=== PATIENT | female | born 1965 | race Caucasian/White ===

== ENCOUNTER → 2020-05-19 18:26 | Outpatient (BNVA) | payer BC, SELFPAY | PROVIDERS: Family Provider Family Medicine; Visit Provider Nurse Practitioner | DX: Z20.828 Contact with and (suspected) exposure to other viral communicable diseases (principal) | CPT/HCPCS: 87635 ==

== ENCOUNTER 2020-05-21 18:45 | Emergency (ER) | payer BC, SELFPAY ==
--- NOTE | 2020-05-21 18:47 | XRR_ITS ---
PROCEDURE INFORMATION: Exam: XR Chest, 1 View Exam date and time: 05/21/2020 7:46 PM Age: 54 years old Clinical indication: Type not specified; Patient HX: Covid positive, SOB, cough, chest pain; Additional info: Cp TECHNIQUE: Imaging protocol: XR of the chest Views: 1 view. COMPARISON: CR Chest 1 [place] [id number] 01/08/2015 8:38 PM FINDINGS: Lungs: Mild interstitial prominence, without acute infiltrate. Pleural space: No pleural effusion. Heart/Mediastinum: No cardiomegaly. Bones/joints: Degenerative change. When correlating with the previous study, no significant interval changes are present. XR/XR chest 1V portable [id number] IMPRESSION: No acute airspace or pleural disease.
[2020-05-21 19:13] VITALS: BP 207/99; PULSE 85; RESP 14; TEMP 37.6; O2SAT 95; BMI 29.9
--- NOTE | 2020-05-21 19:27 | W.ED.SOB ---
HPI - SOB/Dyspnea General: Chief Complaint: Shortness of Breath/Dyspnea Stated Complaint: covid + Time Seen by Provider: 05/21/20 18:59 Source: patient Mode of arrival: ambulatory Limitations: no limitations History of Present Illness: HPI Narrative: 54-year-old female states she had a cough along with dyspnea and fever over the last 3 days. Patient had COVID testing came back positive today. She states she is concerned with COVID. She has no history of any respiratory issues. Patient's pulse ox here is 96% she is in no distress. She has had some chest pain she states sharp after coughing. Denies any worsening or improving factors. She had no vomiting or diarrhea. Associated symptoms: Reports fever(s); Deny abdominal pain, chest pain, nausea or vomiting Review of Systems Const: Reports: fever(s) Eyes: Denies: blurry vision or eye discomfort ENMT: Denies: throat pain or dental pain Card: Denies: chest pain Resp: Reports: dyspnea and non-productive cough GI: Denies: abdominal pain, nausea, vomiting or diarrhea : Denies: dysuria Musc: Denies: neck pain or back pain Skin/Breast: Denies: rash Neuro: Denies: headache(s) Psych: Denies: depression Sourav/Lymph: Denies: easy bruising All/Imm: Denies: urticaria Physical Exam Const: COMMON NORMALS: no acute distress, patient oriented x3 and healthy appearing HENMT: COMMON NORMALS: normocephalic and atraumatic HEAD & SCALP: normocephalic and atraumatic Eye: COMMON NORMALS: Equal, round and reactive pupils present and EOMs intact bilaterally PUPIL: Yes Equal, round and reactive pupils present Neck/C-Spine: COMMON NORMALS: full ROM and supple Chest: COMMONS NORMALS: normal inspection of the chest and normal palpation of entire chest wall Resp: COMMON NORMALS: normal respiratory effort, No retractions, No use of accessory muscles and clear to auscultation bilaterally AUSCULTATION: clear to auscultation bilaterally Cardio: COMMON NORMALS: regular rate, regular rhythm and No murmurs present (Cardio) RATE: regular rate RHYTHM: regular rhythm GI: COMMON NORMALS: Normal to inspection, nondistended, normoactive bowel sounds present, Soft to palpation, non-tender and no masses PALPATION: Yes Soft to palpation Extremity: COMMON NORMALS: normal to inspection and full ROM Neuro: COMMON NORMALS: patient oriented x3, moves all extremities and no focal motor deficits Psych: COMMON NORMALS: mental status grossly normal, Normal thought process present and cooperative THOUGHT PROCESS: Normal thought process present Skin: COMMON NORMALS: no rashes or lesions noted and no wounds GENERAL SKIN EXAM: no rashes or lesions noted Course Vital Signs: Vital signs: Vital Signs Temperature 99.6 F 05/21/20 19:13 Pulse Rate 72 05/21/20 20:57 Respiratory Rate 18 05/21/20 20:57 Blood Pressure 189/71 05/21/20 20:57 Pulse Oximetry 92 05/21/20 20:57 MDM - SOB/Dyspnea MDM Narrative: Medical decision making narrative: Patient presents here with coronavirus. Patient's lab work here is normal and she has no signs of pulmonary embolism or pneumonia. Her oxygen saturation here is currently 96%. Patient given IV Decadron here we will send her home with an albuterol inhaler. She is stable for discharge is to follow-up with her PCP and return to the ER if worsening. She understands and agrees to plan. Lab Data: Labs: Lab Results 05/21/20 05/21/20 05/21/20 Range/Units 19:42 19:42 19:42 WBC 4.1 (4.0-10.0) 10^3/ uL RBC 4.45 (4.1-5.3) 10^6/u L Hgb 12.9 (11.5-15.3) g/dL Hct 38.4 (37.0-47.0) % MCV 86.3 (81-99) fL MCH 29.0 (28.0-34.0) pg MCHC 33.6 (30.0-36.0) g/dL RDW 12.2 (12.1-15.1) % Plt Count 223 (130-400) 10^3/c mm MPV 9.8 (7.4-10.4) fL Neut % (Auto) 53.1 % Lymph % (Auto) 34.1 % [place] % (Auto) 10.1 % Eos % (Auto) 2.0 % Baso % (Auto) 0.5 % Neut # (Auto) 2.15 (1.8-7.7) 10^3/u L Lymph # (Auto) 1.4 (0.8-4.8) 10^3/u L [place] # (Auto) 0.4 (0.2-0.9) 10^3/u L Eos # (Auto) 0.1 (0.0-0.8) 10^3/u L Baso # (Auto) 0.0 (0.0-0.1) 10^3/u L Nucleated RBC % (a uto) 0 % Nucleated RBCs # 0.0 /100WBC Fibrinogen 587 H (174-498) mg/dL Sodium 137 (136-145) mmol/L Potassium 3.9 (3.5-5.1) mmol/L Chloride 101 (98-107) mmol/L Carbon Dioxide 23 (22-29) mmol/L Anion Gap 16.9 (5-19) BUN 17 (6-20) mg/dL Creatinine 1.0 H (0.5-0.9) mg/dL GFR Calculation 57.4 L (90-130) mL/min Glucose 104 (65-115) mg/dL Calculated Osmolal ity 286 (285-295) mOsm/k g Lactic Acid (0.5-2.2) mmol/L Calcium 9.3 (8.5-10.5) mg/dL Total Bilirubin 0.3 (0.15-1.2) mg/dL AST 26 (0-32) U/L ALT 17 (0-33) U/L Alkaline Phosphata se 77 (35-105) IU/L NT-Pro-B Natriuret Pep 231 H (0-125) pg/mL Total Protein 7.1 (6.6-8.7) g/dL Albumin 4.1 (3.5-5.2) g/dL Globulin 3.0 (1.3-4.6) g/dL 05/21/20 Range/Units 19:42 WBC (4.0-10.0) 10^3/ uL RBC (4.1-5.3) 10^6/u L Hgb (11.5-15.3) g/dL Hct (37.0-47.0) % MCV (81-99) fL MCH (28.0-34.0) pg MCHC (30.0-36.0) g/dL RDW (12.1-15.1) % Plt Count (130-400) 10^3/c mm MPV (7.4-10.4) fL Neut % (Auto) % Lymph % (Auto) % [place] % (Auto) % Eos % (Auto) % Baso % (Auto) % Neut # (Auto) (1.8-7.7) 10^3/u L Lymph # (Auto) (0.8-4.8) 10^3/u L [place] # (Auto) (0.2-0.9) 10^3/u L Eos # (Auto) (0.0-0.8) 10^3/u L Baso # (Auto) (0.0-0.1) 10^3/u L Nucleated RBC % (a uto) % Nucleated RBCs # /100WBC Fibrinogen (174-498) mg/dL Sodium (136-145) mmol/L Potassium (3.5-5.1) mmol/L Chloride (98-107) mmol/L Carbon Dioxide (22-29) mmol/L Anion Gap (5-19) BUN (6-20) mg/dL Creatinine (0.5-0.9) mg/dL GFR Calculation (90-130) mL/min Glucose (65-115) mg/dL Calculated Osmolal ity (285-295) mOsm/k g Lactic Acid 1.2 (0.5-2.2) mmol/L Calcium (8.5-10.5) mg/dL Total Bilirubin (0.15-1.2) mg/dL AST (0-32) U/L ALT (0-33) U/L Alkaline Phosphata se (35-105) IU/L NT-Pro-B Natriuret Pep (0-125) pg/mL Total Protein (6.6-8.7) g/dL Albumin (3.5-5.2) g/dL Globulin (1.3-4.6) g/dL Imaging Data^: CXR: My impression: no acute abnormality Discharge Plan Discharge Patient Disposition: Home Clinical Impression: COVID-19 Condition: Stable Prescriptions: No Action carvedilol 25 mg tablet 25 mg PO BID RF: 0 hydrocodone-acetaminophen 10-325 mg tablet See Rx Instructions .ROUTE .COMPLEX RF: 0 hydrochlorothiazide 25 mg tablet 25 mg PO DAILY RF: 0 naproxen 500 mg tablet 500 mg PO BID RF: 0 meclizine 1 tab PO PRN PRN (Reason: Dizziness) RF: 0 Discharge Orders: Discharge Order (Routine); Ordered 05/21/20 Ordered By: Marilynn Carty Referrals: Slava Prince MD [Primary Care Provider] - 4-7 days Discharge Diet: Advance as tolerated Discharge Activity: Resume usual activity Patient Instructions: Upper Respiratory Infection (ED) Coding Level of Care Code ED Manager Copy for Chg Fwd Exam Comprehensive
[2020-05-21 19:50] LABS: Basophils % 0.5 %; Eosinophils # 0.1 10^3/uL (0.0-0.8); Hematocrit 38.4 % (37.0-47.0); Hemoglobin 12.9 g/dL (11.5-15.3); Lymphocytes # 1.4 10^3/uL (0.8-4.8); Lymphocytes % 34.1 %; Mean Corpuscular HGB Conc 33.6 g/dL (30.0-36.0); Mean Corpuscular Volume 86.3 fL (81-99); Mean Platelet Volume 9.8 fL (7.4-10.4); Monocytes # 0.4 10^3/uL (0.2-0.9); Monocytes % 10.1 %; Neutrophils # 2.15 10^3/uL (1.8-7.7); Neutrophils % 53.1 %; Nucleated Red Blood Cells % 0 %; Platelet Count 223 10^3/cmm (130-400); Red Blood Count 4.45 10^6/uL (4.1-5.3); Red Cell Distribution Width 12.2 % (12.1-15.1); White Blood Count 4.1 10^3/uL (4.0-10.0)
[2020-05-21 20:05] LABS: Fibrinogen 587 mg/dL (174-498)
[2020-05-21 20:13] LABS: Lactic Sepsis W/Reflex 1.2 mmol/L (0.5-2.2)
[2020-05-21 20:18] LABS: Alanine Aminotransferase 17 U/L (0-33); Albumin Level 4.1 g/dL (3.5-5.2); Alkaline Phosphatase 77 IU/L (35-105); Anion Gap 16.9 (5-19); Aspartate Amino Transferase 26 U/L (0-32); Blood Urea Nitrogen 17 mg/dL (6-20); Calcium 9.3 mg/dL (8.5-10.5); Carbon Dioxide 23 mmol/L (22-29); Chloride 101 mmol/L (98-107); Glomerular Filtration Rate 57.4 mL/min (90-130); Glucose 104 mg/dL (65-115); NT Pro B Type Natriuretic Pept 231 pg/mL (0-125); Osmolality Calculated 286 mOsm/kg (285-295); Potassium 3.9 mmol/L (3.5-5.1); Sodium 137 mmol/L (136-145); Total Bilirubin 0.3 mg/dL (0.15-1.2); Total Protein 7.1 g/dL (6.6-8.7)
[2020-05-21] MEDS: dexamethasone 10 mg/mL INJ IVP (20:20)
[2020-05-21] MEDS: ketorolac 30 mg/mL INJ 15 MG IVP (20:22)
[2020-05-21 20:29] VITALS: BP 187/89; PULSE 64; RESP 20; O2SAT 96
[2020-05-21 20:57] VITALS: BP 189/71; PULSE 72; RESP 18; O2SAT 92
[2020-05-21 21:17] VITALS: PULSE 78; RESP 16; O2SAT 96
[2020-05-21 21:22] VITALS: BP 188/72; PULSE 80; RESP 20; O2SAT 91
== END 2020-05-21 21:23 | disposition home or self-care (01) ==
PROVIDERS: Emergency Provider Emergency Medicine; PCP Family Medicine
DX: U07.1 COVID-19 (principal)
CPT/HCPCS: 12345; 71045; 80053; 83605; 83880; 85025; 85384; 94640; 96374; 96375; 99283; 99284; J1100; J1885; J3535

== ENCOUNTER 2020-05-27 08:43 | Emergency (ER) | payer BC, SELFPAY ==
[2020-05-27 09:14] VITALS: BP 216/99; PULSE 86; RESP 20; TEMP 37.1; O2SAT 92; BMI 30.9
--- NOTE | 2020-05-27 09:19 | XR_ITS ---
WS: [id number] XR chest 1V portable [id number] REASON FOR EXAM: dyspnea/cough FINDINGS: Comparison examination on 05/21/2020. The heart and mediastinum are within normal limits. Compared to the previous examination there is a small linear density in the lateral aspect of the lef t lower lung. No other interval change is identified. XR/XR chest 1V portable [id number] IMPRESSION: Most likely small area of linear atelectasis in the left lower lung compared to the previous study.
[2020-05-27 09:27] LABS: Basophils % 0.5 %; Eosinophils # 0.1 10^3/uL (0.0-0.8); Eosinophils % 1.6 %; Hematocrit 37.2 % (37.0-47.0); Hemoglobin 12.8 g/dL (11.5-15.3); Lymphocytes # 0.8 10^3/uL (0.8-4.8); Lymphocytes % 10.5 %; Mean Corpuscular HGB Conc 34.4 g/dL (30.0-36.0); Mean Corpuscular Hemoglobin 29.3 pg (28.0-34.0); Mean Corpuscular Volume 85.1 fL (81-99); Mean Platelet Volume 9.9 fL (7.4-10.4); Monocytes # 0.8 10^3/uL (0.2-0.9); Monocytes % 9.7 %; Neutrophils # 6.09 10^3/uL (1.8-7.7); Neutrophils % 77.1 %; Nucleated Red Blood Cells % 0 %; Platelet Count 327 10^3/cmm (130-400); Red Blood Count 4.37 10^6/uL (4.1-5.3); Red Cell Distribution Width 11.9 % (12.1-15.1); White Blood Count 7.9 10^3/uL (4.0-10.0)
[2020-05-27 09:35] LABS: Add Urine Microscopic? YES; Bacteria Urine 1+ /hpf; Bilirubin Urine 1+ (Negative); Blood Urine 3+ (Negative); Glucose Urine UA Norm (Normal); Ketones Urine Negative (Negative); Leukocyte Esterase Urine 2+ (Negative); Nitrate Urine Positive (Negative); Protein Urine 1+ (Negative); RBC Urine 0-4 /hpf (0-2); Specific Gravity, Urine 1.015 (1.005-1.030); Squamous Epithelial Cell Urine 0-4 /hpf (0-5); Urine Appearance Cloudy (CLEAR); Urine Color Yellow (Yellow); Urobilinogen Urine 1 mg/dL (Negative); WBC Urine TOO NUMEROUS TO CNT /hpf (0-5); pH Urine 5 (5-7)
[2020-05-27 09:36] LABS: Add Urine Culture? Yes
[2020-05-27 09:38] LABS: Alanine Aminotransferase 14 U/L (0-33); Albumin Level 3.8 g/dL (3.5-5.2); Alkaline Phosphatase 93 IU/L (35-105); Anion Gap 14.5 (5-19); Aspartate Amino Transferase 20 U/L (0-32); Blood Urea Nitrogen 15 mg/dL (6-20); Calcium 9.2 mg/dL (8.5-10.5); Carbon Dioxide 21 mmol/L (22-29); Chloride 99 mmol/L (98-107); Globulin 3.4 g/dL (1.3-4.6); Glomerular Filtration Rate 64.8 mL/min (90-130); Glucose 126 mg/dL (65-115); Osmolality Calculated 274 mOsm/kg (285-295); Potassium 3.5 mmol/L (3.5-5.1); Sodium 131 mmol/L (136-145); Total Bilirubin 0.4 mg/dL (0.15-1.2); Total Protein 7.2 g/dL (6.6-8.7)
--- NOTE | 2020-05-27 10:05 | W.ED.BACK ---
HPI - Back Pain/Injury General: Chief Complaint: Back Pain/Injury Stated Complaint: +COVID LAST WEEK, KIDNEY PROBLEMS TODAY Time Seen by Provider: 05/27/20 08:48 History of Present Illness: HPI Narrative: 54-year-old female who comes into the emergency room with complaint of left flank pain that she has had over the last 2 days. She said dysuria urgency and frequency she has had problems with bladder infections and pyelonephritis in the past. She also tested positive for COVID 1 week ago she is not noticed any worsening in her breathing. She not had any increased cough shortness of breath or exertional dyspnea. For the most part she relates that her COVID symptoms have been very mild. She denies any fever sweats or chills since the onset of the flank pain. MD elicited complaint: back pain Pertinent past history: prior back pain Onset (ago): day(s) Timing: constant Severity: moderate Similar Symptoms Previously: Yes Quality: sharp Location: left flank Radiation: groin Exacerbating factors: movement Relieving factors: supine Context: other (Cystitis) Associated symptoms: Reports abdominal pain, chills, dysuria, fever(s), myalgias, nausea, urinary frequency, urinary urgency and weakness; Deny arthralgias, change in bowel habits, difficulty walking, fatigue, fecal incontinence, hematuria, numbness, syncope, tingling/numbness/burning or vomiting Treatments prior to arrival: NSAIDS and acetaminophen Work related injury: No Review of Systems Const: Reports: fever(s) and chills; Denies: fatigue ENMT: Denies: throat pain, ear or mastoid pain, nasal discharge or nasal congestion Card: Denies: syncope Resp: Denies: dyspnea, productive cough or non-productive cough GI: Reports: abdominal pain and nausea; Denies: vomiting, fecal incontinence or change in bowel habits : Reports: dysuria and urinary urgency; Denies: hematuria Skin/Breast: Denies: rash or pruritus Neuro: Denies: difficulty walking Physical Exam Const: COMMON NORMALS: no acute distress GENERAL APPEARANCE: cooperative and comfortable ORIENTATION/CONSCIOUSNESS: Yes awake, Yes oriented to person, Yes oriented to place and Yes oriented to time HENMT: COMMON NORMALS: normocephalic, atraumatic and hearing grossly normal bilaterally HEAD & SCALP: normocephalic and atraumatic Eye: COMMON NORMALS: Equal, round and reactive pupils present, EOMs intact bilaterally, conjunctivae normal and no scleral icterus CONJUNCTIVA: Yes conjunctivae normal PUPIL: Yes Equal, round and reactive pupils present Neck/C-Spine: COMMON NORMALS: no JVD Lymph: LYMPHATIC: no lymphadenopathy noted and no lymphedema noted Resp: COMMON NORMALS: normal respiratory effort, No retractions, No use of accessory muscles and clear to auscultation bilaterally AUSCULTATION: clear to auscultation bilaterally Cardio: COMMON NORMALS: no JVD, regular rate, regular rhythm and No murmurs present (Cardio) RATE: regular rate RHYTHM: regular rhythm GI: COMMON NORMALS: Soft to palpation and No hepatosplenomegaly present AUSCULTATION: Yes normoactive bowel sounds PALPATION: Yes Soft to palpation, No Tenderness to palpation present (GI), No Guarding due to palpation present (GI) and Yes No hepatosplenomegaly present : BLADDER/KIDNEY EXAM: Yes CVA tenderness Back/Pelvis: GENERAL BACK: Yes CVA tenderness CVA tenderness: left Extremity: COMMON NORMALS: normal to inspection, capillary refill normal, no clubbing, cyanosis or edema, no calf tenderness and no pedal edema Neuro: SENSORIUM/ORIENTATION: Yes oriented to person, Yes oriented to place and Yes oriented to time Skin: COMMON NORMALS: no rashes or lesions noted GENERAL SKIN EXAM: no rashes or lesions noted Course Vital Signs: Vital signs: Vital Signs Temperature 98.7 F 05/27/20 09:14 Pulse Rate 74 05/27/20 11:22 Respiratory Rate 18 05/27/20 11:22 Blood Pressure 168/84 05/27/20 11:22 Pulse Oximetry 97 05/27/20 11:22 MDM - Back Pain/Injury MDM Narrative: Medical decision making narrative: Patient does have a mild acute pyelonephritis we will go ahead and start on quinolone Cipro twice daily for 7 days cultures pending White count is normal continue to maintain quarantine for COVID positive status. Return if his further problems. Lab Data: Labs: Lab Results 05/27/20 05/27/20 05/27/20 Range/Units 09:05 09:08 09:08 WBC 7.9 (4.0-10.0) 10^3/ uL RBC 4.37 (4.1-5.3) 10^6/u L Hgb 12.8 (11.5-15.3) g/dL Hct 37.2 (37.0-47.0) % MCV 85.1 (81-99) fL MCH 29.3 (28.0-34.0) pg MCHC 34.4 (30.0-36.0) g/dL RDW 11.9 L (12.1-15.1) % Plt Count 327 (130-400) 10^3/c mm MPV 9.9 (7.4-10.4) fL Neut % (Auto) 77.1 % Lymph % (Auto) 10.5 % [place] % (Auto) 9.7 % Eos % (Auto) 1.6 % Baso % (Auto) 0.5 % Neut # (Auto) 6.09 (1.8-7.7) 10^3/u L Lymph # (Auto) 0.8 (0.8-4.8) 10^3/u L [place] # (Auto) 0.8 (0.2-0.9) 10^3/u L Eos # (Auto) 0.1 (0.0-0.8) 10^3/u L Baso # (Auto) 0.0 (0.0-0.1) 10^3/u L Nucleated RBC % (a uto) 0 % Nucleated RBCs # 0.0 /100WBC Sodium 131 L (136-145) mmol/L Potassium 3.5 (3.5-5.1) mmol/L Chloride 99 (98-107) mmol/L Carbon Dioxide 21 L (22-29) mmol/L Anion Gap 14.5 (5-19) BUN 15 (6-20) mg/dL Creatinine 0.9 (0.5-0.9) mg/dL GFR Calculation 64.8 L (90-130) mL/min Glucose 126 H (65-115) mg/dL Calculated Osmolal ity 274 L (285-295) mOsm/k g Calcium 9.2 (8.5-10.5) mg/dL Total Bilirubin 0.4 (0.15-1.2) mg/dL AST 20 (0-32) U/L ALT 14 (0-33) U/L Alkaline Phosphata se 93 (35-105) IU/L Total Protein 7.2 (6.6-8.7) g/dL Albumin 3.8 (3.5-5.2) g/dL Globulin 3.4 (1.3-4.6) g/dL Urine Color Yellow (Yellow) Urine Appearance Cloudy (CLEAR) Urine pH 5 (5-7) Ur Specific Gravit y 1.015 (1.005-1.030) Urine Protein 1+ H (Negative) Urine Glucose (UA) Norm (Normal) Urine Ketones Negative (Negative) Urine Blood 3+ H (Negative) Urine Nitrate Positive H (Negative) Urine Bilirubin 1+ H (Negative) Urine Urobilinogen 1 H (Negative) mg/dL Ur Leukocyte Daphnie ase 2+ H (Negative) Urine RBC 0-4 H (0-2) /hpf Urine WBC Too numerous to c nt H (0-5) /hpf Ur Squamous Epith Cells 0-4 H (0-5) /hpf Amorphous Sediment Not Reportable Urine Bacteria 1+ H (NONE) /hpf Discharge Plan Discharge Patient Disposition: Home Clinical Impression: Pyelonephritis Condition: Stable Prescriptions: New Cipro 500 mg tablet 500 mg PO BID Qty: 14 RF: 0 No Action carvedilol 25 mg tablet 25 mg PO BID RF: 0 hydrocodone-acetaminophen 10-325 mg tablet See Rx Instructions .ROUTE .COMPLEX RF: 0 hydrochlorothiazide 25 mg tablet 25 mg PO DAILY RF: 0 naproxen 500 mg tablet 500 mg PO BID RF: 0 Discharge Orders: Discharge Order (Routine); Ordered 05/27/20 Ordered By: Corby Mullen Referrals: Slava Prince MD [Primary Care Provider] - Discharge Diet: Usual diet Discharge Activity: Increase activity as tolerated Discharge Date/Time: 05/27/20 11:22 Coding Level of Care Code ED Protozoology Teacher for Radhag Sarah
[2020-05-27] MEDS: cefTRIAXone 1,000 MG in sodium chloride 0.9% (plus) 50 ML 100 MG IV (11:06)
[2020-05-27 11:22] VITALS: BP 168/84; PULSE 74; RESP 18; O2SAT 97
--- NOTE | 2020-05-29 13:50 | PC.NURSE ---
[place] [facility] [place] 1 tab PO BID x 10 days per written order by Dr Mullen.
== END 2020-05-27 11:22 | disposition home or self-care (01) ==
PROVIDERS: Emergency Provider Family Medicine; PCP Family Medicine
DX: N12 Tubulo-interstitial nephritis, not specified as acute or chronic (principal)
CPT/HCPCS: 12345; 71045; 80053; 81001; 85025; 87077; 87086; 87186; 96365; 99282; 99283; J0696

== ENCOUNTER 2022-01-26 08:30 | Outpatient (CLI) | payer BC, SELFPAY ==
--- NOTE | 2022-01-26 09:13 | XRR_ITS ---
PROCEDURE INFORMATION: Exam: XR Cervical Spine Exam date and time: 01/26/2022 9:17 AM Age: 56 years old Clinical indication: Patient HX: History--neck pain , PT injured neck while jumping on trampoline 2 weeks ago; Additional info: Spinal stenosis, cervical region, please comment on presence or absence of spinal instability TECHNIQUE: Imaging protocol: XR of the cervical spine. Views: 2 or 3 views. COMPARISON: CR XR chest 1V portable [id number] 05/27/2020 9:27 AM FINDINGS: Bones/joints: The cervical spine maintains a normal lordotic curvature. No spondylolisthesis identified. No significant change in spinal alignment with flexion and extension views. The vertebral bodies maintain normal height. Multilevel loss of intervertebral disc height in the cervical spine most predominant C6-7. Multilevel endplate degenerative changes most predominant at C4-5, C5-6 and C6-7. Multilevel cervical facet arthropathy. Soft tissues: Unremarkable. XR/XR cervical spine fl/ex [id number] IMPRESSION: 1. No vertebral body height loss or traumatic malalignment identified. 2. Multilevel degenerative disc disease.
== END 2022-01-26 08:31 | disposition home or self-care (01) ==
PROVIDERS: PCP Family Medicine; Visit Provider Anesthesiology Pain Medicine
DX: M54.2 Cervicalgia (principal); M48.02 Spinal stenosis, cervical region; M51.36 Other intervertebral disc degeneration, lumbar region
CPT/HCPCS: 72040

== ENCOUNTER 2022-05-23 19:54 | Emergency (ER) | payer BC, SELFPAY ==
[2022-05-23 20:00] VITALS: BP 213/110; PULSE 75; RESP 16; TEMP 36.6; O2SAT 97
--- NOTE | 2022-05-23 20:15 | XRR_ITS ---
PROCEDURE INFORMATION: Exam: XR Right Foot Exam date and time: 05/23/2022 8:35 PM Age: 56 years old Clinical indication: Injury or trauma; Fall; Blunt trauma; Foot; Right; Injury date: 05/12/2022; Injury details: PT tripped and fell on concrete approx 1.5 weeks ago; Additional info: Fall foot pain TECHNIQUE: Imaging protocol: Radiologic exam of the Right foot. Views: 3 or more views. COMPARISON: No relevant prior studies available. FINDINGS: Bones/joints: Normal. Soft tissues: Normal. XR/XR foot RT min 3V* [id number] IMPRESSION: No acute osseous findings.
--- NOTE | 2022-05-23 21:48 | ED_ITS ---
HPI - Extremity Problem General: Chief complaint: Extremity Injury, Lower Stated complaint: Injury Rt Foot Time Seen by Provider: 05/23/22 20:03 Source: patient History of Present Illness: 56-year-old female who fell a week ago injuring her right foot. She states that she tripped over a car battery. She complains of lateral right foot pain. No swelling. There is a bump on the dorsum of her foot, she states has been there for years but it seems to have grown and gotten more tender as well. MD Complaint: extremity pain and joint pain Onset (ago): day(s) Pain Consistency: constant Location: right, lower extremity and other (Foot) Quality: aching Radiation: none Relieving factors: immobilization Exacerbating factors: weight bearing Associated symptoms: Deny arthralgias, chest pain, fever(s), rash or short of breath Review of Systems Const: Denies: fever(s) Card: Denies: chest pain Resp: Denies: dyspnea GI: Denies: vomiting Skin/Breast: Denies: rash PFSH ED PFSH: Medical History Hypertension Physical Exam Const: COMMON NORMALS: no acute distress GENERAL APPEARANCE: cooperative; not ill appearing HENMT: COMMON NORMALS: normocephalic, atraumatic and Normal external nose present HEAD & SCALP: normocephalic and atraumatic NOSE: Normal external nose present Eye: COMMON NORMALS: Equal, round and reactive pupils present and EOMs intact bilaterally PUPIL: Yes Equal, round and reactive pupils present Neck/C-Spine: COMMON NORMALS: full ROM GENERAL: Yes trachea midline Chest: CHEST: Yes Symmetrical chest wall rise Resp: COMMON NORMALS: normal respiratory effort Cardio: COMMON NORMALS: regular rate and regular rhythm RATE: regular rate RHYTHM: regular rhythm Extremity: NARRATIVE EXTREMITY EXAM: Examination right foot reveals tenderness over the lateral midfoot. Midfoot dorsum has a mildly tender bony prominence present. No significant deformity. No significant swelling. There is minimal ankle tenderness over the ATFL with no fibular or ankle joint line tenderness. Neuro: FRANK COMA SCALE: document GCS findings [place] coma scale eye opening: Spontaneous [place] coma scale verbal response: Orientated Frank coma scale motor response: Obey commands Frank coma scale total score: 15 SPEECH: speech normal Course Vital Signs: Vital signs: Vital Signs Temperature 98.0 F 05/23/22 23:02 Pulse Rate 66 05/23/22 23:02 Respiratory Rate 17 05/23/22 23:19 Blood Pressure 176/79 05/23/22 23:53 Pulse Oximetry 100 05/23/22 23:53 Oxygen Delivery Me thod 05/23/22 23:19 MDM - Extremity (Nontraumatic) Medical Decision Making X-ray is read as no fracture. On the oblique view, there may be a faint hairline nondisplaced fracture through the base of fifth metatarsal where she is tender. It appears to be healing.We will treat with stiff soled lace up boots. PCP follow-up. Lab Data Radiology Impressions Foot X-Ray 05/23/22 20:15 IMPRESSION: No acute osseous findings. Discharge Plan Discharge Patient Disposition: Home Clinical Impression: Fracture of base of fifth metatarsal bone Condition: Stable Prescriptions: No Action meloxicam 15 mg tablet 15 mg PO DAILY Qty: 30 12RF aspirin 81 mg tablet,delayed release (DR/EC) 81 mg PO DAILY Qty: 30 0RF amlodipine 5 mg tablet 5 mg PO BID Qty: 60 12RF alprazolam 0.25 mg tablet 0.25 mg PO TID PRN (Reason: anxiety) Qty: 60 1RF hydrochlorothiazide 25 mg tablet 25 mg PO DAILY Qty: 30 11RF carvedilol 25 mg tablet 25 mg PO BID hydrocodone-acetaminophen 10-325 mg tablet See Rx Instructions .ROUTE .COMPLEX Rx Instructions: 1 - 2 tab orally EVERY 4-6 HOURS NEEDED FOR PAIN' Discharge Orders: Discharge ED (Routine); Ordered 05/23/22 Ordered By: Devon Robins Referrals: Slava Prince MD [Primary Care Provider] - 2 weeks Patient Instructions: Foot Fracture in Adults (ED), Opioid Safety, Pain Management Activity Restrictions/Additional Instructions: Wear lace up boots until you are able to bear weight in the fracture boot you are prescribed. Wear the fracture boot until seen by your primary doctor in 10 days to 2 weeks. Repeat x-ray may be needed at that point. Return for any problems. Ice will help with pain. Coding Level of Care Code ED Evaluation Assistant for Chg Fwd Exam Comprehensive
[2022-05-23 22:49] VITALS: BP 217/114
[2022-05-23] MEDS: nitroglycerin 0.4 mg sublingual Tablet SUBLINGUAL (22:49)
[2022-05-23] MEDS: cloNIDine 0.1 mg Tablet PO (22:49)
[2022-05-23 23:02] VITALS: BP 217/114; PULSE 66; RESP 17; TEMP 36.7; O2SAT 99
--- NOTE | 2022-05-23 23:10 | PC.NURSE ---
Blood pressure 217/114 at time of discharge, physician notified, new medication order received, meds given. Report to Elvie and patient updated
[2022-05-23 23:19] VITALS: BP 230/92; RESP 17; O2SAT 100
--- NOTE | 2022-05-23 23:20 | PC.NURSE ---
patient bp reassessed, 230/92, charge and dr hardy notified, patient states that she is in a lot of pain in her right foot, refuses medications for pain control due to limitations set with her pain management program.
--- NOTE | 2022-05-23 23:23 | PC.NURSE ---
patient assisted to the bathroom
[2022-05-23 23:53] VITALS: BP 176/79; O2SAT 100
== END 2022-05-23 23:53 | disposition home or self-care (01) ==
PROVIDERS: Emergency Provider Emergency Medicine; PCP Family Medicine
DX: S92.351A Displaced fracture of fifth metatarsal bone, right foot, initial encounter for closed fracture (principal); I10 Essential (primary) hypertension; W01.0XXA Fall on same level from slipping, tripping and stumbling without subsequent striking against object, initial encounter
CPT/HCPCS: 73630; 99283

== ENCOUNTER 2022-06-01 18:28 | Observation (INO) | payer BC, SELFPAY ==
--- NOTE | 2022-06-01 18:28 | XRR_ITS ---
PROCEDURE INFORMATION: Exam: XR Chest Exam date and time: 06/01/2022 6:44 PM Age: 56 years old Clinical indication: Other: R/O stroke TECHNIQUE: Imaging protocol: Radiologic exam of the chest. Views: 1 view. COMPARISON: CR XR chest 1V portable [id number] 05/27/2020 9:27 AM FINDINGS: Lungs: Unremarkable. No consolidation. Pleural spaces: Unremarkable. No pleural effusion. No pneumothorax. Heart/Mediastinum: Unremarkable. No cardiomegaly. Bones/joints: Unremarkable. XR/XR chest 1V portable [id number] IMPRESSION: No acute findings.
--- NOTE | 2022-06-01 18:29 | CTR_ITS ---
PROCEDURE INFORMATION: Exam: CT Head Without Contrast Exam date and time: 06/01/2022 6:25 PM Age: 56 years old Clinical indication: Stroke-like symptoms; Other: RT sided weakness; Additional info: Symptoms of acute stroke TECHNIQUE: Imaging protocol: Computed tomography of the head without contrast. Radiation optimization: All CT scans at this facility use at least one of these dose optimization techniques: automated exposure control; mA and/or kV adjustment per patient size (includes targeted exams where dose is matched to clinical indication); or iterative reconstruction. Other technique: STROKE PROTOCOL was implemented. COMPARISON: MR paiz's wo/w con* [id number] 11/26/2017 12:58 PM RADIATION DOSE METRICS: Total DLP (mGy-cm): 1055.16 FINDINGS: Brain: There is mild cortical atrophy. Low-density changes in the white matter are consistent with nonspecific small vessel chronic ischemic change. There is no intracranial mass, hemorrhage or edema. There is focal low-density in the right caudate nucleus likely small chronic lacunar infarct. Cerebral ventricles: No ventriculomegaly. Paranasal sinuses: Visualized sinuses are unremarkable. No fluid levels. Mastoid air cells: Visualized mastoid air cells are well aerated. Bones/joints: Unremarkable. No acute fracture. Soft tissues: Unremarkable. CT/CT head wo con* [id number] IMPRESSION: Old lacunar disease. No acute intracranial finding. ASSESSMENT: ASPECTS ([place] Stroke Program Early CT Score) is 10.
[2022-06-01 18:30] VITALS: BP 173/67; PULSE 79; RESP 18; TEMP 36.6; O2SAT 95; BMI 32.2
[2022-06-01 18:48] VITALS: BP 173/67; PULSE 84; RESP 20; O2SAT 93
--- NOTE | 2022-06-01 18:49 | W.ED.NEUROSD ---
Documented by User: Cornelius Eaton DO 06/01/22 23:06 HPI - Neuro Symptoms/Deficit General: Chief Complaint: Neuro Symptoms/Deficit Stated Complaint: STROKE ALERT Time Seen by Provider: 06/01/22 18:28 History of Present Illness: 56-year-old female brought in by EMS. Patient was at clinic where she was to be evaluated because her said she had a 101 fever this morning and a bunch of dark stool. Patient was 1 to be checked for COVID. They report that when she was at the clinic EMS was called for some shortness of breath. When EMS arrived they report that she appeared to have complete right-sided weakness. Upon arrival to the ER patient went straight to CT. Upon arrival back to the ER room. Patient reports that she just does not feel good and not feeling right. Patient denied any focal weakness. Her was when reported that she had a fever this morning and stool and that is why she initially went to the doctor's office. Associated symptoms: Reports malaise; Deny chest pain, nausea or vomiting Review of Systems Const: Reports: fever(s) and malaise Eyes: Denies: change in vision or blurry vision ENMT: Denies: throat pain or ear or mastoid pain Card: Denies: chest pain or palpitations Resp: Denies: productive cough, non-productive cough or wheezing GI: Reports: abdominal pain and diarrhea; Denies: nausea or vomiting : Denies: flank pain or difficulty voiding Musc: Denies: neck pain or back pain Skin/Breast: Denies: rash Neuro: Reports: weakness in extremities and other (Please see HPI) Psych: Denies: anxiety or depression PFSH ED PFSH: Medical History (Updated 06/10/22 @ 10:53 by Kvng Mustafa MD) Anemia COVID-19 GI bleed Hypertension Infection due to ESBL-producing Escherichia coli LVH (left ventricular hypertrophy) Melena Transient cerebral ischemia Surgical History H/O tubal ligation History of back surgery History of History of carpal tunnel surgery Hx of appendectomy Hx of tonsillectomy Family History Other Hypertension Parkinsons disease Social History Smoking and tobacco status: former smoker Alcohol intake: current Alcohol intake frequency: holidays/special occasions only 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 stroke score NIHSS: Level Of Consciousness - 1a: 0 Level Of Consciousness Questions - 1b: Both Correct Level Of Consciousness Commands - 1c: Both Correct Best Gaze - 2: Normal Visual Yang - 3: No Visual Loss Facial Palsy - 4: Normal Motor Arm Right - 5: No Drift Motor Arm Left - 5: No Drift Motor Leg Right - 6: No Drift Motor Leg Left - 6: No Drift Limb Ataxia - 7: Absent Sensory - 8: Normal Best Language - 9: No Aphasia Dysarthia - 10: Normal Extinction And Inattention - 11: 0 Score: Total Score: 0 Physical Exam Const: COMMON NORMALS: no acute distress and patient oriented x3 GENERAL APPEARANCE: ill appearing Eye: COMMON NORMALS: Equal, round and reactive pupils present and EOMs intact bilaterally GENERAL EYE: appearance normal, both eyes and all related structures PUPIL: Yes Equal, round and reactive pupils present Chest: CHEST: Yes Symmetrical chest wall rise Resp: COMMON NORMALS: normal respiratory effort and No use of accessory muscles EFFORT & INSPECTION: Yes able to speak in complete sentences Cardio: COMMON NORMALS: regular rate and regular rhythm RATE: regular rate RHYTHM: regular rhythm GI: INSPECTION: Yes normal to inspection PALPATION: Yes Tenderness to palpation present (GI) Details: other (Mid abdomen) Extremity: COMMON NORMALS: full ROM and capillary refill normal OTHER: Walking boot left lower extremity Neuro: COMMON NORMALS: patient oriented x3, moves all extremities, no focal motor deficits and no sensory deficits noted Psych: APPEARANCE: Yes grossly normal Skin: COMMON NORMALS: no rashes or lesions noted GENERAL SKIN EXAM: no rashes or lesions noted Course Vital Signs: Vital signs: Vital Signs Temperature 98.1 F 06/03/22 13:47 Pulse Rate 95 06/03/22 13:47 Respiratory Rate 18 06/03/22 13:47 Blood Pressure 169/78 06/03/22 13:47 Pulse Oximetry 98 06/03/22 13:47 Oxygen Delivery Me thod 06/03/22 11:28 MDM - Neuro Symptoms/Deficit Medical Decision Making Patient with likely a TIA. We are awaiting CT abdomen results to evaluate her abdominal pain and slight decrease in hemoglobin. Patient signed off to Dr. allen who will assume management and likely admit patient for observation depending on results of the CT abdomen. Lab Data : 06/03/22 04:20 06/03/22 04:20 Radiology Impressions Chest X-Ray 06/01/22 18:28 IMPRESSION: No acute findings. Head CT 06/01/22 18:29 IMPRESSION: Old lacunar disease. No acute intracranial finding. ASSESSMENT: ASPECTS ([place] Stroke Program Early CT Score) is 10. Head MRI 06/01/22 19:54 IMPRESSION: 1. Old lacunar infarcts. 2. No acute intracranial abnormality. ADDENDUM: 06/01/22 [id number] Addendum: This study was done as a MRI brain without and with intravenous contrast and includes postcontrast sequences in the imaging protocol. Abdomen/Pelvis CT 06/01/22 22:04 IMPRESSION: 1. Cholelithiasis 2. No acute findings in the abdomen or pelvis. Head/Neck CTA 06/02/22 00:12 IMPRESSION: 1. Moderate stenosis in the intracranial right internal carotid artery.. 2. Severe stenosis left cavernous internal carotid artery 3. Small distal left vertebral artery. IMPRESSION: 1. Moderate stenosis proximal right internal carotid artery. 2. Moderate stenosis proximal left internal carotid artery 3. Question of occlusion of proximal left vertebral artery REFERENCES: NASCET CRITERIA. The degree of stenosis in the cervical segment of the internal carotid artery is based on NASCET criteria. Normal is no stenosis. Mild is less than 50% stenosis. Moderate is 50-69% stenosis. Severe is 70% to 99% stenosis. Total occlusion is no detectable patent lumen. Laboratory Results WBC 9.3 10^3/uL (4.0-10.0) 06/01/22 18:44 RBC 3.24 10^6/uL (4.1-5.3) L 06/01/22 18:44 Hgb 9.9 g/dL (11.5-15.3) L 06/01/22 18:44 Hct 28.9 % (37.0-47.0) L 06/01/22 18:44 MCV 89.2 fl (81-99) 06/01/22 18:44 MCH 30.6 pg (28.0-34.0) 06/01/22 18:44 MCHC 34.3 g/dL (30.0-36.0) 06/01/22 18:44 RDW 13.1 % (12.1-15.1) 06/01/22 18:44 Plt Count 300 10^3/cmm (130-400) 06/01/22 18:44 MPV 10.3 fL (7.4-10.4) 06/01/22 18:44 Neut % (Auto) 73.9 % 06/01/22 18:44 Lymph % (Auto) 20.5 % 06/01/22 18:44 [place] % (Auto) 4.2 % 06/01/22 18:44 Eos % (Auto) 0.8 % 06/01/22:44 Baso % (Auto) 0.3 % 06/01/22 18:44 Neut # (Auto) 6.84 10^3/uL (1.8-7.7) 06/01/22 18:44 Lymph # (Auto) 1.9 10^3/uL (0.8-4.8) 06/01/22 18:44 [place] # (Auto) 0.4 10^3/uL (0.2-0.9) 06/01/22 18:44 Eos # (Auto) 0.1 10^3/uL (0.0-0.8) 06/01/22 18:44 Baso # (Auto) 0.0 10^3/uL (0.0-0.1) 06/01/22 18:44 Nucleated RBC % (auto) 0 % 06/01/22 18:44 Nucleated RBCs # 0.0 /100WBC 06/01/22 18:44 PT 14.00 SECONDS (12.1-14.9) 06/01/22 18:44 INR 1.05 (0.8-1.2) 06/01/22 18:44 APTT 27.3 SECONDS (23.9-36.7) 06/01/22 18:44 Sodium 138 mmol/L (136-145) 06/01/22 18:44 Potassium 3.8 mmol/L (3.5-5.1) 06/01/22 18:44 Chloride 103 mmol/L (98-107) 06/01/22 18:44 Carbon Dioxide 25 mmol/L (22-29) 06/01/22 18:44 Anion Gap 13.8 (5-19) 06/01/22 18:44 BUN 46 mg/dL (6-20) H 06/01/22 18:44 Creatinine 1.0 mg/dL (0.5-0.9) H 06/01/22 18:44 GFR Calculation 56.9 mL/min (90-130) L 06/01/22 18:44 Glucose 137 mg/dL (65-115) H 06/01/22 18:44 Calculated Osmolality 300 mOsm/kg (285-295) H 06/01/22 18:44 Lactate 1.6 mmol/L (0.5-2.2) 06/01/22 18:44 Calcium 9.2 mg/dL (8.5-10.5) 06/01/22 18:44 Total Bilirubin 0.3 mg/dL (0.15-1.2) 06/01/22 18:44 AST 17 U/L (0-32) 06/01/22 18:44 ALT 16 U/L (0-33) 06/01/22 18:44 Alkaline Phosphatase 61 U/L (35-105) 06/01/22 18:44 Total Protein 6.3 g/dL (6.6-8.7) L 06/01/22 18:44 Albumin 3.8 g/dL (3.5-5.2) 06/01/22 18:44 Globulin 2.5 g/dL (1.3-4.6) 06/01/22 18:44 Lipase 17 U/L (13-60) 06/01/22 18:44 Urine Color Yellow (Yellow) 06/01/22 21:39 Urine Appearance Clear (CLEAR) 06/01/22 21:39 Urine pH 5 (5-7) 06/01/22 21:39 Ur Specific [place] 1.015 (1.005-1.030) 06/01/22 21:39 Urine Protein Neg (Negative) 06/01/22 21:39 Urine Glucose (UA) Norm (Normal) 06/01/22 21:39 Urine Ketones Negative (Negative) 06/01/22 21:39 Urine Blood 2+ (Negative) H 06/01/22 21:39 Urine Nitrate Positive (Negative) H 06/01/22 21:39 Urine Bilirubin Neg (Negative) 06/01/22 21:39 Urine Urobilinogen Norm mg/dL (Negative) 06/01/22 21:39 Ur Leukocyte Esterase 2+ (Negative) H 06/01/22 21:39 Urine RBC 5-10 /hpf (0-2) H 06/01/22 21:39 Urine WBC 40-55 /hpf (0-5) H 06/01/22 21:39 Ur Squamous Epith Cells 0-4 /hpf (0-5) H 06/01/22 21:39 Amorphous Sediment Not Reportable 06/01/22 21:39 Urine Bacteria 3+ /hpf (NONE) H 06/01/22 21:39 Urine Opiates Screen Positive ng/mL (Negative) H 06/01/22 21:39 Ur Barbiturates Screen Negative ng/mL (Negative) 06/01/22 21:39 Ur Phencyclidine Scrn Negative ng/mL (Negative) 06/01/22 21:39 Ur Amphetamines Screen Negative ng/mL (Negative) 06/01/22 21:39 U Benzodiazepines Scrn Positive ng/mL (Negative) H 06/01/22 21:39 Urine Cocaine Screen Negative ng/mL (Negative) 06/01/22 21:39 U Marijuana (THC) Screen Negative ng/mL (Negative) 06/01/22 21:39 SARS-CoV-2 Ag (Rapid) negative (Negative) 06/01/22 19:44 Discharge Plan Discharge Patient Disposition: Placed in Observation Admit Provider: Osmel Brady Clinical Impression: Transient cerebral ischemia Discharge Diet: Cardiac Discharge Activity: Increase activity as tolerated Sign Out Sign Out Data: Patient Sign Out occurred on 06/01/22 at 23:05. Patient's care was discussed, and care was transferred from to Samuel Allen MD. Coding Level of Care Code ED Hydraulic Auto Jack Mechanic for Chg Fwd Exam Comprehensive Documented by User: Samuel Allen MD 06/10/22 19:45 HPI - Neuro Symptoms/Deficit General: Chief Complaint: Neuro Symptoms/Deficit Stated Complaint: STROKE ALERT Time Seen by Provider: 06/01/22 18:28 PFSH ED PFSH: Medical History (Updated 06/10/22 @ 10:53 by Kvng Mustafa MD) Anemia COVID-19 GI bleed Hypertension Infection due to ESBL-producing Escherichia coli LVH (left ventricular hypertrophy) Melena Transient cerebral ischemia Surgical History H/O tubal ligation History of back surgery History of History of carpal tunnel surgery Hx of appendectomy Hx of tonsillectomy Family History Other Hypertension Parkinsons disease Social History Smoking and tobacco status: former smoker Alcohol intake: current Alcohol intake frequency: holidays/special occasions only 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 We are awaiting CT abdomen results to evaluate her abdominal pain and slight decrease in hemoglobin. Patient signed off to Dr. allen who will assume management and likely admit patient for observation depending on results of the CT abdomen. I discussed this case with Dr. Eaton at time of handoff. I reviewed history, imaging, labs. No new neurologic symptoms on reexamination however given observed significant neurologic symptoms patient requires admission for further evaluation. Patient agreeable to plan. Samuel Allen MD Emergency Medicine Lab Data : 06/03/22 04:20 06/03/22 04:20 Radiology Impressions Chest X-Ray 06/01/22 18:28 IMPRESSION: No acute findings. Head CT 06/01/22 18:29 IMPRESSION: Old lacunar disease. No acute intracranial finding. ASSESSMENT: ASPECTS ([place]iana Stroke Program Early CT Score) is 10. Head MRI 06/01/22 19:54 IMPRESSION: 1. Old lacunar infarcts. 2. No acute intracranial abnormality. ADDENDUM: 06/01/22 0512 Addendum: This study was done as a MRI brain without and with intravenous contrast and includes postcontrast sequences in the imaging protocol. Abdomen/Pelvis CT 06/01/22 22:04 IMPRESSION: 1. Cholelithiasis 2. No acute findings in the abdomen or pelvis. Head/Neck CTA 06/02/22 00:12 IMPRESSION: 1. Moderate stenosis in the intracranial right internal carotid artery.. 2. Severe stenosis left cavernous internal carotid artery 3. Small distal left vertebral artery. IMPRESSION: 1. Moderate stenosis proximal right internal carotid artery. 2. Moderate stenosis proximal left internal carotid artery 3. Question of occlusion of proximal left vertebral artery REFERENCES: NASCET CRITERIA. The degree of stenosis in the cervical segment of the internal carotid artery is based on NASCET criteria. Normal is no stenosis. Mild is less than 50% stenosis. Moderate is 50-69% stenosis. Severe is 70% to 99% stenosis. Total occlusion is no detectable patent lumen. Laboratory Results WBC 9.3 10^3/uL (4.0-10.0) 06/01/22 18:44 RBC 3.24 10^6/uL (4.1-5.3) L 06/01/22 18:44 Hgb 9.9 g/dL (11.5-15.3) L 06/01/22 18:44 Hct 28.9 % (37.0-47.0) L 06/01/22 18:44 MCV 89.2 fl (81-99) 06/01/22 18:44 MCH 30.6 pg (28.0-34.0) 06/01/22 18:44 MCHC 34.3 g/dL (30.0-36.0) 06/01/22 18:44 RDW 13.1 % (12.1-15.1) 06/01/22 18:44 Plt Count 300 10^3/cmm (130-400) 06/01/22 18:44 MPV 10.3 fL (7.4-10.4) 06/01/22 18:44 Neut % (Auto) 73.9 % 06/01/22 18:44 Lymph % (Auto) 20.5 % 06/01/22 18:44 [place] % (Auto) 4.2 % 06/01/22 18:44 Eos % (Auto) 0.8 % 06/01/22 18:44 Baso % (Auto) 0.3 % 06/01/22 18:44 Neut # (Auto) 6.84 10^3/uL (1.8-7.7) 06/01/22 18:44 Lymph # (Auto) 1.9 10^3/uL (0.8-4.8) 06/01/22 18:44 [place] # (Auto) 0.4 10^3/uL (0.2-0.9) 06/01/22 18:44 Eos # (Auto) 0.1 10^3/uL (0.0-0.8) 06/01/22 18:44 Baso # (Auto) 0.0 10^3/uL (0.0-0.1) 06/01/22 18:44 Nucleated RBC % (auto) 0 % 06/01/22 18:44 Nucleated RBCs # 0.0 /100WBC 06/01/22 18:44 PT 14.00 SECONDS (12.1-14.9) 06/01/22 18:44 INR 1.05 (0.8-1.2) 06/01/22 18:44 APTT 27.3 SECONDS (23.9-36.7) 06/01/22 18:44 Sodium 138 mmol/L (136-145) 06/01/22 18:44 Potassium 3.8 mmol/L (3.5-5.1) 06/01/22 18:44 Chloride 103 mmol/L (98-107) 06/01/22 18:44 Carbon Dioxide 25 mmol/L (22-29) 06/01/22 18:44 Anion Gap 13.8 (5-19) 06/01/22 18:44 BUN 46 mg/dL (6-20) H 06/01/22 18:44 Creatinine 1.0 mg/dL (0.5-0.9) H 06/01/22 18:44 GFR Calculation 56.9 mL/min (90-130) L 06/01/22 18:44 Glucose 137 mg/dL (65-115) H 06/01/22 18:44 Calculated Osmolality 300 mOsm/kg (285-295) H 06/01/22 18:44 Lactate 1.6 mmol/L (0.5-2.2) 06/01/22 18:44 Calcium 9.2 mg/dL (8.5-10.5) 06/01/22 18:44 Total Bilirubin 0.3 mg/dL (0.15-1.2) 06/01/22 18:44 AST 17 U/L (0-32) 06/01/22 18:44 ALT 16 U/L (0-33) 06/01/22 18:44 Alkaline Phosphatase 61 U/L (35-105) 06/01/22 18:44 Total Protein 6.3 g/dL (6.6-8.7) L 06/01/22 18:44 Albumin 3.8 g/dL (3.5-5.2) 06/01/22 18:44 Globulin 2.5 g/dL (1.3-4.6) 06/01/22 18:44 Lipase 17 U/L (13-60) 06/01/22 18:44 Urine Color Yellow (Yellow) 06/01/22 21:39 Urine Appearance Clear (CLEAR) 06/01/22 21:39 Urine pH 5 (5-7) 06/01/22 21:39 Ur Specific [place] 1.015 (1.005-1.030) 06/01/22 21:39 Urine Protein Neg (Negative) 06/01/22 21:39 Urine Glucose (UA) Norm (Normal) 06/01/22 21:39 Urine Ketones Negative (Negative) 06/01/22 21:39 Urine Blood 2+ (Negative) H 06/01/22 21:39 Urine Nitrate Positive (Negative) H 06/01/22 21:39 Urine Bilirubin Neg (Negative) 06/01/22 21:39 Urine Urobilinogen Norm mg/dL (Negative) 06/01/22 21:39 Ur Leukocyte Esterase 2+ (Negative) H 06/01/22 21:39 Urine RBC 5-10 /hpf (0-2) H 06/01/22 21:39 Urine WBC 40-55 /hpf (0-5) H 06/01/22 21:39 Ur Squamous Epith Cells 0-4 /hpf (0-5) H 06/01/22 21:39 Amorphous Sediment Not Reportable 06/01/22 21:39 Urine Bacteria 3+ /hpf (NONE) H 06/01/22 21:39 Urine Opiates Screen Positive ng/mL (Negative) H 06/01/22 21:39 Ur Barbiturates Screen Negative ng/mL (Negative) 06/01/22 21:39 Ur Phencyclidine Scrn Negative ng/mL (Negative) 06/01/22 21:39 Ur Amphetamines Screen Negative ng/mL (Negative) 06/01/22 21:39 U Benzodiazepines Scrn Positive ng/mL (Negative) H 06/01/22 21:39 Urine Cocaine Screen Negative ng/mL (Negative) 06/01/22 21:39 U Marijuana (THC) Screen Negative ng/mL (Negative) 06/01/22 21:39 SARS-CoV-2 Ag (Rapid) negative (Negative) 06/01/22 19:44 Discharge Plan Discharge Patient Disposition: Placed in Observation Admit Provider: Osmel Brady Clinical Impression: Transient cerebral ischemia Discharge Diet: Cardiac Discharge Activity: Increase activity as tolerated Sign Out Sign Out Data: Patient Sign Out occurred on 06/01/22 at 23:05. Patient's care was discussed, and care was transferred from to Samuel Allen MD. Coding Level of Care Code ED Hydraulic Auto Jack Mechanic for Eyad Fwd Exam Comprehensive
[2022-06-01 18:58] LABS: Basophils % 0.3 %; Eosinophils # 0.1 10^3/uL (0.0-0.8); Eosinophils % 0.8 %; Hematocrit 28.9 % (37.0-47.0); Hemoglobin 9.9 g/dL (11.5-15.3); Lymphocytes # 1.9 10^3/uL (0.8-4.8); Lymphocytes % 20.5 %; Mean Corpuscular HGB Conc 34.3 g/dL (30.0-36.0); Mean Corpuscular Hemoglobin 30.6 pg (28.0-34.0); Mean Corpuscular Volume 89.2 fl (81-99); Mean Platelet Volume 10.3 fL (7.4-10.4); Monocytes # 0.4 10^3/uL (0.2-0.9); Monocytes % 4.2 %; Neutrophils # 6.84 10^3/uL (1.8-7.7); Neutrophils % 73.9 %; Nucleated Red Blood Cells % 0 %; Platelet Count 300 10^3/cmm (130-400); Red Blood Count 3.24 10^6/uL (4.1-5.3); Red Cell Distribution Width 13.1 % (12.1-15.1); White Blood Count 9.3 10^3/uL (4.0-10.0)
[2022-06-01 19:04] LABS: INR 1.05 (0.8-1.2)
[2022-06-01 19:05] LABS: Partial Thromboplastin Time 27.3 SECONDS (23.9-36.7)
[2022-06-01 19:10] LABS: Alanine Aminotransferase 16 U/L (0-33); Albumin Level 3.8 g/dL (3.5-5.2); Alkaline Phosphatase 61 U/L (35-105); Anion Gap 13.8 (5-19); Aspartate Amino Transferase 17 U/L (0-32); Blood Urea Nitrogen 46 mg/dL (6-20); Calcium 9.2 mg/dL (8.5-10.5); Carbon Dioxide 25 mmol/L (22-29); Chloride 103 mmol/L (98-107); Globulin 2.5 g/dL (1.3-4.6); Glomerular Filtration Rate 56.9 mL/min (90-130); Glucose 137 mg/dL (65-115); Lactate (Lactic Acid level) 1.6 mmol/L (0.5-2.2); Lipase 17 U/L (13-60); Osmolality Calculated 300 mOsm/kg (285-295); Potassium 3.8 mmol/L (3.5-5.1); Sodium 138 mmol/L (136-145); Total Bilirubin 0.3 mg/dL (0.15-1.2); Total Protein 6.3 g/dL (6.6-8.7)
--- NOTE | 2022-06-01 19:54 | MRR_ITS ---
PROCEDURE INFORMATION: Exam: MR Head Without Contrast Exam date and time: 06/01/2022 8:55 PM Age: 56 years old Clinical indication: Speech disturbance and weakness, extremity; Right; Slurred speech; Additional info: Slurred speech, right sided weakness TECHNIQUE: Imaging protocol: Magnetic resonance imaging of the head without contrast. COMPARISON: 1. CT head wo con* [id number] 06/01/2022 6:25 PM 2. MR iac's wo/w con* [id number] 11/26/2017 12:58 PM FINDINGS: Brain: There is a small chronic lacunar infarct in the right basal ganglia region is seen on CT scan. There is also small T1 hypointense T2 hyperintense focus in the left centrum semiovale, probably a small chronic lacunar infarct not seen on the previous MRI present on the recent CT scan. There is no intracranial mass or hemorrhage. There is no abnormal enhancement within the brain. There is no restricted diffusion such as would indicate an acute infarct. Mild cerebellar ectopia not significantly changed from 11/26/2017. Cerebral ventricles: Normal. No ventriculomegaly. Bones/joints: Unremarkable. Paranasal sinuses: Normal as visualized. No acute sinusitis. Mastoid air cells: Normal as visualized. No mastoid effusion. Orbital cavities: Unremarkable. Soft tissues: Unremarkable. MR/MR head wo/w con [id number] IMPRESSION: 1. Old lacunar infarcts. 2. No acute intracranial abnormality.
[2022-06-01 20:18] LABS: SARS Covid-2 Antigen negative (Negative)
[2022-06-01] MEDS: gadobenate dimeglumine 20 mL vial IV (21:15)
--- NOTE | 2022-06-01 21:44 | PC.NURSE ---
@ 1938- dr leon notified that pt has changes in NIH score since report at shift change. Pt found to no longer have tack coverer to right hand and unable to form words. Per Dr Leon post exam of pt, MRI.
[2022-06-01 21:47] VITALS: BP 162/71; PULSE 86; RESP 18; O2SAT 90
[2022-06-01] MEDS: sodium chloride 0.9% 1,000 ML 999 ML IV (21:50)
[2022-06-01 22:04] LABS: Amphetamines Screen Urine Negative (Negative); Barbiturates Screen Urine Negative (Negative); Benzodiazepines Screen Urine Positive (Negative); Cocaine Screen Urine Negative (Negative); Opiate Screen Urine Positive (Negative); PCP Screen Urine Negative (Negative); THC Screen Urine Negative (Negative)
--- NOTE | 2022-06-01 22:04 | CTR_ITS ---
PROCEDURE INFORMATION: Exam: CT Abdomen And Pelvis Without Contrast Exam date and time: 06/01/2022 10:45 PM Age: 56 years old Clinical indication: Abdominal pain; Generalized; Patient HX: C/O abd pain with decreased hemoglobin TECHNIQUE: Imaging protocol: Computed tomography of the abdomen and pelvis without contrast. Radiation optimization: All CT scans at this facility use at least one of these dose optimization techniques: automated exposure control; mA and/or kV adjustment per patient size (includes targeted exams where dose is matched to clinical indication); or iterative reconstruction. COMPARISON: MR lumbar spine wo con* [id number] 03/25/2016 9:18 AM RADIATION DOSE METRICS: Total DLP (mGy-cm): 786.69 FINDINGS: Limitations: The absence of intravenous contrast lessens the sensitivity of this study for solid organ abnormalities. Liver: There is no focal abnormality within the liver. Gallbladder and bile ducts: Multiple calcified gallstones are present. Pancreas: The pancreas is normal. Spleen: The spleen is normal. Adrenal glands: The adrenal glands are normal. Kidneys and ureters: There is scarring in portions of the upper pole and lower pole of the left kidney.The right kidney is normal. There is no evidence of hydronephrosis. There is no evidence of renal or ureteral calcifications. Stomach and bowel: There is a diverticulum from the 2nd or 3rd portion of the duodenum. There is no evidence of colitis/diverticulitis. There is no evidence of intestinal obstruction. Appendix: Not identified Intraperitoneal space: There is no evidence of free intraperitoneal fluid. Vasculature: The aorta demonstrates mild atherosclerotic calcification. There is no evidence of an abdominal aortic aneurysm. Lymph nodes: There is no evidence of lymphadenopathy. Urinary bladder: Contrast excretion by the kidneys and within the urinary bladder likely represents gadolinium from recent post-contrast MRI study. Reproductive: Unremarkable as visualized. Bones/joints: The lumbar spine demonstrates moderate degenerative changes at multiple levels. Soft tissues: Unremarkable. CT/CT abdomen pelvis wo con [id number] IMPRESSION: 1. Cholelithiasis 2. No acute findings in the abdomen or pelvis.
[2022-06-01 22:06] LABS: Add Urine Microscopic? YES; Bilirubin Urine Neg (Negative); Blood Urine 2+ (Negative); Glucose Urine UA Norm (Normal); Ketones Urine Negative (Negative); Leukocyte Esterase Urine 2+ (Negative); Nitrate Urine Positive (Negative); Protein Urine Neg (Negative); Specific Gravity, Urine 1.015 (1.005-1.030); Urine Appearance Clear (CLEAR); Urine Color Yellow (Yellow); Urobilinogen Urine Norm (Negative); WBC Urine 40-55 /hpf (0-5); pH Urine 5 (5-7)
[2022-06-01 22:07] LABS: Add Urine Culture? Yes; Bacteria Urine 3+ /hpf; Squamous Epithelial Cell Urine 0-4 /hpf (0-5)
[2022-06-01] MEDS: cefTRIAXone 1,000 MG in sodium chloride 0.9% (plus) 50 ML 100 MG IV (22:38)
[2022-06-01 22:45] VITALS: BP 119/63; PULSE 82; RESP 18
[2022-06-01 23:45] VITALS: BP 126/85; PULSE 85; RESP 21; O2SAT 96
[2022-06-02] VITALS (17 sets, daily range): BP systolic 107–176; BP diastolic 60–98; PULSE 60–89; RESP 16–22; TEMP 36.6–36.8; O2SAT 90–99
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
--- NOTE | 2022-06-02 00:12 | USCV_ITS ---
Bere Plasencia Age: 56 Gender: F : 1965 Exam Date: 06/02/2022 01:26 Ordering Phys: Osmel Brady MD Technologist: CRISTIANA [place] [facility] [place]: Right hemparesis, aphasic, syncopal TIA. No hx cardiac intervention per patient. BP: 126 / 85 HR: 75 Rhythm: Sinus Technical Quality: Adequate MEASUREMENTS (Male / Female) Normal Values 2D ECHO LV Diastolic Diameter PLAX 3.6 cm 4.2 - 5.9 / 3.9 - 5.3 cm LV Systolic Diameter PLAX 2.1 cm IVS Diastolic Thickness 1.3 cm 0.6 - 1.0 / 0.6 - 0.9 cm IVS Systolic Thickness 2.2 cm LVPW Diastolic Thickness 1.5 cm 0.6 - 1.0 / 0.6 - 0.9 cm LVPW Systolic Thickness 1.4 cm LVOT Diameter 1.7 cm LV Ejection Fraction 2D Teich 73.5 % LV Ejection Fraction MOD 2C 55.1 % LV Ejection Fraction 2C AL 55.8 % LA Diameter 3.7 cm LA Width 4.3 cm LA Height 5.0 cm RA Width 2.8 cm RA Height 2.7 cm Aorta at Sinotubular Diameter 2.8 cm IVC Diameter 1.1 cm M-MODE Aortic Annulus Diameter 2.6 cm LA Ao Ratio MM 1.4 MV E Point Septal Separation 0.4 cm DOPPLER AV Peak Velocity 166.0 cm/s LVOT Peak Velocity 108.0 cm/s AV Area Cont Eq vti 2.0 cm squared AV Area Cont Eq pk 1.5 cm squared MV Peak Velocity 108.0 cm/s MV Area PHT 2.1 cm squared Mitral E to A Ratio 0.7 MV E' Velocity 32.5 cm/s Mitral E to MV E' Ratio 11.6 Mitral E to LV E' Lateral Ratio 13.2 Mitral E to LV E' Septal Ratio 10.4 TR Peak Velocity 194.0 cm/s TR Peak Gradient 15.1 mmHg TV Peak E Velocity 49.0 cm/s Right Atrial Pressure 5.0 mmHg Pulmonary Artery Systolic Pressu 20.1 mmHg PV Peak Velocity 114.0 cm/s RV Acceleration Time 0.1 s RV Ejection Time 0.4 s RV AcT/ET 0.2 FINDINGS Left Ventricle Left ventricle is normal in size. LV systolic function is normal with EF 55 to 60%. No regional wall motion abnormalities are seen.Moderate left ventricular hypertrophy seen. Grade 1 diastolic dysfunction Right Ventricle RV is normal in size and function Right Atrium Normal in size Left Atrium Normal in size Mitral Valve Structurally normal mitral valve. Mild mitral regurgitation. Aortic Valve Structurally normal aortic valve. No significant stenosis or regurgitation. Tricuspid Valve Trace tricuspid regurgitation. Insufficient TR jet to calculate RVSP Pulmonic Valve Not well visualized Pericardium Normal Aorta Normal in size IVC Normal CONCLUSIONS LV systolic function is normal with EF of 55 to 60%. Moderate left ventricular hypertrophy is seen. Grade 1 diastolic dysfunction Mild mitral regurgitation Trace tricuspid regurgitation No comparison study are available Sreekanth Yu MD (Electronically Signed) Final Date: 02 June 2022 11:06 S
--- NOTE | 2022-06-02 00:12 | CTR_ITS ---
PROCEDURE INFORMATION: Exam: CTA Head With Contrast, Arteriography Exam date and time: 06/02/2022 12:49 AM Age: 56 years old Clinical indication: Patient HX: Sudden onset of RT sided weakness. ; Additional info: TIA TECHNIQUE: Imaging protocol: Computed tomographic angiography of the head with contrast. Exam focused on the arteries. 3D rendering (Not supervised by radiologist): MIP and/or 3D reconstructed images were created by the technologist. Radiation optimization: All CT scans at this facility use at least one of these dose optimization techniques: automated exposure control; mA and/or kV adjustment per patient size (includes targeted exams where dose is matched to clinical indication); or iterative reconstruction. Contrast material: OMNI 350; Contrast volume: 100 ml; Contrast route: INTRAVENOUS (IV); COMPARISON: MR head wo/w con [id number] 06/01/2022 8:55 PM RADIATION DOSE METRICS: Total DLP (mGy-cm): 973.53 FINDINGS: ANTERIOR CIRCULATION: Right internal carotid artery: There is atherosclerotic plaque and moderate stenosis in the right cavernous carotid artery. There is some mild atherosclerotic narrowing of the right internal carotid artery within the carotid canal. Right middle cerebral artery: No occlusion or significant stenosis. No aneurysm. Right anterior cerebral artery: No occlusion or significant stenosis. No aneurysm. Left internal carotid artery: There is severe stenosis in the left cavernous carotid artery. There is mild stenosis in the left internal carotid artery in the carotid canal. Left middle cerebral artery: No occlusion or significant stenosis. No aneurysm. Left anterior cerebral artery: No occlusion or significant stenosis. No aneurysm. POSTERIOR CIRCULATION: Right vertebral artery: No occlusion or significant stenosis. No aneurysm. Left vertebral artery: The left V3 vertebral artery segment is very small. The left V4 vertebral artery segment appears to be supplied via retrograde flow as it is larger than the V3 segment. Basilar artery: No occlusion or significant stenosis. No aneurysm. Right posterior cerebral artery: There is origin of the right posterior cerebral artery. Left posterior cerebral artery: No occlusion or significant stenosis. No aneurysm. Brain: There is moderate cortical atrophy. Low-density changes in the white matter are consistent with nonspecific small vessel chronic ischemic change. There is no intracranial mass, hemorrhage or edema. Small bilateral lacunar infarcts again identified not changed from the previous exam. Cerebral ventricles: No ventriculomegaly. Bones/joints: Unremarkable. No acute fracture. Soft tissues: Unremarkable. PROCEDURE INFORMATION: Exam: CTA Neck With Contrast Exam date and time: 06/02/2022 12:49 AM Age: 56 years old Clinical indication: Patient HX: Sudden onset of RT sided weakness. ; Additional info: TIA TECHNIQUE: Imaging protocol: Computed tomographic angiography of the neck with contrast. 3D rendering (Not supervised by radiologist): MIP and/or 3D reconstructed images were created by the technologist. Radiation optimization: All CT scans at this facility use at least one of these dose optimization techniques: automated exposure control; mA and/or kV adjustment per patient size (includes targeted exams where dose is matched to clinical indication); or iterative reconstruction. Contrast material: OMNI 350; Contrast volume: 100 ml; Contrast route: INTRAVENOUS (IV); COMPARISON: MR head wo/w con [id number] 06/01/2022 8:55 PM RADIATION DOSE METRICS: Total DLP (mGy-cm): 973.53 FINDINGS: Right common carotid artery: No stenosis. No dissection or occlusion. Right internal carotid artery: Extensive calcified and noncalcified atherosclerotic plaque proximal right internal carotid artery resulting in 50-69 % stenosis as measured according to the NASCET criteria. Right external carotid artery: No occlusion or stenosis of the origin. Left common carotid artery: No stenosis. No dissection or occlusion. Left internal carotid artery: There is calcified atherosclerotic plaque in the proximal left internal carotid artery resulting in 50-69 % stenosis as measured according to the NASCET criteria. Left external carotid artery: No occlusion or stenosis of the origin. Right vertebral artery: Right vertebral artery is dominant. No evidence of stenosis, dissection or occlusion. Left vertebral artery: The mid to distal left vertebral artery is very small. The proximal left vertebral artery is not well demonstrated on this examination and may be proximally occluded. Soft tissues: Normal. No significant soft tissue swelling. Bones/joints: No acute fracture. CT/CT angio headneck* [id number] IMPRESSION: 1. Moderate stenosis in the intracranial right internal carotid artery.. 2. Severe stenosis left cavernous internal carotid artery 3. Small distal left vertebral artery. IMPRESSION: 1. Moderate stenosis proximal right internal carotid artery. 2. Moderate stenosis proximal left internal carotid artery 3. Question of occlusion of proximal left vertebral artery REFERENCES: NASCET CRITERIA. The degree of stenosis in the cervical segment of the internal carotid artery is based on NASCET criteria. Normal is no stenosis. Mild is less than 50% stenosis. Moderate is 50-69% stenosis. Severe is 70% to 99% stenosis. Total occlusion is no detectable patent lumen.
[2022-06-02] MEDS: iohexol 350 mg/mL 100 mL Btl IV (01:01)
[2022-06-02] MEDS: sodium chloride 0.9% 1,000 ML 100 ML IV ×2 (02:34→10:24)
[2022-06-02] MEDS: ALPRAZolam 0.5 mg Tablet 0.25 MG PO (02:39)
--- NOTE | 2022-06-02 02:58 | ECG_ITS ---
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 Measurements Intervals [place] Rate: 75 P: 11 HI: 163 QRS: 24 QRSD: 88 T: 85 QT: 389 QTc: 436 Interpretive Statements SINUS RHYTHM NONSPECIFIC ST & T-WAVE ABNORMALITY Compared to ECG 01/08/2015 20:08:56 No significant changes Electronically Signed On 06-03-2022 8:19:24 CDT by Sreekanth Yu M.D. [id number]
[2022-06-02] MEDS: acetaminophen 325 mg Tablet 650 MG PO (04:11)
[2022-06-02] MEDS: HYDROcodone-acetaminophen 5-325 mg Tablet 1 TAB PO ×2 (05:30→10:23)
[2022-06-02] MEDS: pantoprazole 40 mg SDV IVP ×2 (08:21→17:31)
[2022-06-02] MEDS: aspirin 81 mg EC Tablet PO (08:21)
[2022-06-02] MEDS: atorvastatin 40 mg Tablet PO (09:21)
[2022-06-02] MEDS: cefTRIAXone 1,000 MG in sodium chloride 0.9% (plus) 50 ML 100 MG IV (09:21)
--- NOTE | 2022-06-02 11:30 | USCV_ITS ---
Luis Angel Bere Age: 56 Gender: F : 1965 Exam Date: 06/02/2022 15:24 Ordering Phys: John Bob MD Technologist: Lan Warner [place]am [place] [facility] [place] [facility] [place] Indication: tia vs cva Risk Factors: None Previous Vascular Surgery: Right Brachial BP: / Left Brachial BP: / Right Left Velocity (cm/s) Spectral Plaque Velocity (cm/s) Spectral Plaque Syst/Diast Broadening Syst/Diast Broadening 103.60/30.90 Prox CCA 82.00 / 27.30 105.80/28.70 Mid CCA 83.70 / 24.80 79.40/ 26.50 Hetro Distal CCA 64.90 / 16.20 Ken 136.70/60.60 Ken Prox ICA 81.50 / 26.30 Ken 296.20/116.80 Marked Ken Mid ICA 102.50/ 39.40 Hetro 347.50/108.20 Marked Hetro Distal ICA 101.20/ 39.40 72.60 ECA 255.00 3.28 ICA/CCA 1.22 Antegrade Vertebral Antegrade 98.00/ 36.50 cm/s 122.3/ 19.70 cm/s 0 Bi Subclavian Tri 70.90 174.8 0 FINDINGS Comparison: none available. Severe obstructive lesion noted in the right internal carotid artery estimated at greater than 70% stenosis. Marked elevation of diastolic velocity. Bilateral antegrade vertebral arteries. CONCLUSIONS Right ICA stenosis 70-99%. Left ICA stenosis < 50%. Recommend carotid artery CTA to confirm high grade stenosis. Dr. Gladys Campbell DO (Electronically Signed) Final Date: 03 June 2022 07:15 S
[2022-06-02 13:06] LABS: Hemoglobin 7.8 g/dL (11.5-15.3)
--- NOTE | 2022-06-02 16:18 | PM.PN ---
Subjective Subjective: Today she is doing better. She states she is no longer having the room spinning around her. Denies any weakness on the right side. Denies any vision changes, numbness, or any other new symptoms. Has been feeling tired. Having chronic pain with degenerative disc disease, neuropathy in her neck and spine. Denies headache. At home reports that they dark loose bowel movement. Had upper and lower endoscopy but over 10 years ago last. Recently has switched from naproxen to meloxicam. Reports felt unwell, had a fever at home yesterday. [place] like she was having COVID. Denies any ear ache or pain, no hearing changes, no ear discharge. She is having some mild epigastric discomfort. Vitals/I&O/Wt Last Vital Signs Temp 97.9 F 06/02/22 16:00 Pulse 70 06/02/22 16:00 Resp 16 06/02/22 16:00 BP 107/63 06/02/22 16:00 Pulse Ox 90 06/02/22 16:00 O2 Del Method 06/02/22 16:00 06/02/22 06/02/22 06/02/22 06:59 14:59 22:59 Intake Total 1050 / 1050 1073.333 / 1073.333 Balance 1050 / 1050 1073.333 / 1073.333 Weight last 48 hrs Weight 85.275 kg Physical Exam Narrative: Visited by family at bedside. Const: COMMON NORMALS: patient oriented x3 and alert GENERAL APPEARANCE: cooperative ORIENTATION/CONSCIOUSNESS: Yes awake HENMT: COMMON NORMALS: TM's normal bilaterally and oropharynx normal TYMPANIC MEMBRANE: TM's normal bilaterally Neck/C-Spine: COMMON NORMALS: no JVD Resp: COMMON NORMALS: normal respiratory effort and clear to auscultation bilaterally AUSCULTATION: clear to auscultation bilaterally Cardio: COMMON NORMALS: no JVD, regular rhythm, S1 normal heart sound present, S2 normal heart sound present and No murmurs present (Cardio) RHYTHM: regular rhythm HEART SOUNDS: S1 normal heart sound present and S2 normal heart sound present GI: COMMON NORMALS: Normal to inspection, nondistended, normoactive bowel sounds present, Soft to palpation and non-tender PALPATION: Yes Soft to palpation Extremity: COMMON NORMALS: no joint enlargement and no pedal edema Neuro: COMMON NORMALS: patient oriented x3 and moves all extremities SENSORIUM/ORIENTATION: Yes alert COORDINATION/BALANCE: [id number] test normal and [id number] test normal SPEECH: speech normal SENSORY EXAM: Yes extremities (Symmetrical) and Normal double simultaneous stimulation for sensation MOTOR EXAM: Pronator motor function not present COORDINATION: [id number]-[id number] test normal and [id number] test normal OTHER: Keenly awake and alert, following directions. No facial droop. No trouble tracking. Visual good full to confrontation. No visual extinction. Skin: COMMON NORMALS: no rashes or lesions noted GENERAL SKIN EXAM: no rashes or lesions noted Data : 06/02/22 12:03 06/01/22 18:44 Micro: Microbiology 06/01/22 21:39 Urine Culture - Preliminary Urine,Clean Catch Gram Negative Rods 06/01/22 18:48 Blood Culture - Preliminary Blood SPECIMEN COLLECTED 06/01/22 18:44 Blood Culture - Preliminary Blood SPECIMEN COLLECTED A&P Assessment and plan (1) Acute anemia: Reports recently having melanotic stool. Hemoglobin on presentation noted 9.9, lower than 12.8 back on May 27. Rechecked again this afternoon down to 7.8, has been receiving IVF and some delusional component is likely present, however, with melanotic stool, some epigastric discomfort, NSAID use, discussed with her and family concern for upper GI bleeding. Escalate PPI to twice daily. We will follow-up additional hemoglobin. Discussed to discontinue NSAIDs. Currently also on aspirin and with suspected TIA on presentation. With suspected gastritis/PUD with upper GI bleed suspected, discussed with her additional options, having settled on switch to Plavix for now, but with additional monitoring. Although in case of persistent GI bleed may have to be held entirely. Will at some point benefit also from endoscopic evaluation. Last over 10 years ago. (2) Melena: As above (3) TIA (transient ischemic attack): Needs to discontinue meloxicam. Continue to hold antihypertensives for now. Continue gentle IVF hydration. Recheck hemoglobin. With melanotic stools, suspected upper GI blood loss anemia with NSAID use we discussed with her regarding findings on CTA, with moderate disease in extracranial carotid, moderate to severe disease intracranial carotid, possible occlusion of left vertebral. Under other circumstances may have possibly had some benefit from dual antiplatelet, but currently it would be too high risk given her melena, acute anemia. For now discussed additional options, so far we have settled on switching to Plavix for now, her, with additional monitoring of anemia. In case of persistent anemia/bleed, may need to withhold antiplatelets entirely until bleeding subsides. Discussed high intensity statin. (4) UTI (urinary tract infection): Continue ceftriaxone. Follow-up urine culture. (5) Fever: To be due toUnclear cause of episode of fever yesterday, but tract infection. She felt like she was having COVID, having had COVID in the past. Rapid COVID was negative, check COVID PCR. Did have vertigo yesterday, but denies otic complaints. Clear appearing TMs bilaterally. (6) Hypertension: Long-term may benefit from very slow optimization down to goal of 120/80, her, avoid hypotension, avoid sudden decreases in blood pressure with given bilateral carotid disease and possibility of left vertebral occlusion. (7) Anemia: Attestations Medical Necessity Statement*: Continue hospitalization for assessment of acute anemia, possible GI bleed, following episode of TIA on antiplatelet medication, additional comorbidities as above. Coding Level of Care Code Acute Grout Pump Operator for Eyad Smith Diagnoses Acute anemia D64.9 Melena K92.1 TIA (transient ischemic attack) G45.9 UTI (urinary tract infection) N39.0 Fever R50.9 Hypertension I10 Anemia D64.9
[2022-06-02] MEDS: HYDROcodone-acetaminophen 5-325 mg Tablet 2 TAB PO (16:29)
[2022-06-02 17:07] LABS: Hemoglobin 7.9 g/dL (11.5-15.3)
[2022-06-02 17:15] LABS: Adenovirus Not Detected (NOT DETECT); Chlamydia Pneumoniae Not Detected (NOT DETECT); Coronavirus 229E,HKU1,NL63,OC4 Not Detected (NOT DETECT); Human Metapneumovirus Not Detected (NOT DETECT); Human Rhinovirus/Enterovirus Not Detected (NOT DETECT); Influenza A Not Detected (NOT DETECT); Influenza A H1 Not Detected (NOT DETECT); Influenza A H1-2009 Not Detected (NOT DETECT); Influenza A H3 Not Detected (NOT DETECT); Influenza B Not Detected (NOT DETECT); Mycoplasma Pneumoniae Not Detected (NOT DETECT); Parainfluenza Virus Type 1 Not Detected (NOT DETECT); Parainfluenza Virus Type 2 Not Detected (NOT DETECT); Parainfluenza Virus Type 3 Not Detected (NOT DETECT); Parainfluenza Virus Type 4 Not Detected (NOT DETECT); Respiratory Syncytial Virus A Not Detected (NOT DETECT); Respiratory Syncytial Virus B Not Detected (NOT DETECT); SARS-COV-2 Not Detected (NOT DETECT)
[2022-06-03] VITALS (15 sets, daily range): BP systolic 145–180; BP diastolic 74–89; PULSE 89–96; RESP 16–18; TEMP 36.7–37.1; O2SAT 94–98
[2022-06-03] MEDS: ondansetron 2 mg/ML SDV 2 mL 4 MG IVP (03:24)
[2022-06-03] MEDS: sodium chloride 0.9% 1,000 ML 100 ML IV (03:24)
[2022-06-03] MEDS: HYDROcodone-acetaminophen 5-325 mg Tablet 2 TAB PO (03:36)
[2022-06-03 05:07] LABS: Basophils % 0.7 %; Eosinophils # 0.1 10^3/uL (0.0-0.8); Eosinophils % 2.2 %; Hematocrit 24.2 % (37.0-47.0); Lymphocytes # 1.3 10^3/uL (0.8-4.8); Lymphocytes % 20.9 %; Mean Corpuscular HGB Conc 33.1 g/dL (30.0-36.0); Mean Corpuscular Hemoglobin 30.4 pg (28.0-34.0); Mean Platelet Volume 10.6 fL (7.4-10.4); Monocytes # 0.3 10^3/uL (0.2-0.9); Monocytes % 5.6 %; Neutrophils # 4.24 10^3/uL (1.8-7.7); Neutrophils % 70.1 %; Nucleated Red Blood Cells % 0 %; Platelet Count 178 10^3/cmm (130-400); Red Blood Count 2.63 10^6/uL (4.1-5.3); Red Cell Distribution Width 13.4 % (12.1-15.1)
[2022-06-03 05:22] LABS: INR 0.99 (0.8-1.2)
[2022-06-03 05:23] LABS: Partial Thromboplastin Time 20.9 SECONDS (23.9-36.7)
[2022-06-03 05:34] LABS: Blood Urea Nitrogen 16 mg/dL (6-20); Calcium 8.6 mg/dL (8.5-10.5); Carbon Dioxide 21 mmol/L (22-29); Chloride 104 mmol/L (98-107); Glomerular Filtration Rate 64.3 mL/min (90-130); Glucose 107 mg/dL (65-115); Osmolality Calculated 286 mOsm/kg (285-295); Sodium 137 mmol/L (136-145)
[2022-06-03 05:35] LABS: Anion Gap 15.9 (5-19); Potassium 3.9 mmol/L (3.5-5.1)
[2022-06-03 05:39] LABS: Procalcitonin 0.05 ng/mL (0-0.5); Slide Review Slide Review Perform
[2022-06-03] MEDS: pantoprazole 40 mg SDV IVP (09:21)
[2022-06-03] MEDS: atorvastatin 40 mg Tablet PO (09:22)
[2022-06-03] MEDS: cefTRIAXone 1,000 MG in sodium chloride 0.9% (plus) 50 ML 100 MG IV (09:22)
[2022-06-03] MEDS: clopidogrel 75 mg Tablet PO (09:22)
--- NOTE | 2022-06-03 12:02 | PM.DCS ---
Discharge Providers Date of Admission: 06/02/22 02:11 Date of Discharge: June 03, 2022 Attending Provider at Admission: Osmel Brady MD Attending Provider at Discharge: John Bob Primary Care Provider: Slava Prince MD Diagnoses at Discharge Discharge Diagnosis (1) Acute anemia: Status: Acute (2) Melena: Status: Acute (3) TIA (transient ischemic attack): Status: Acute (4) UTI (urinary tract infection): Status: Acute (5) Fever: Status: Acute (6) Hypertension: Status: Acute (7) Anemia: Status: Acute Reason for Visit Reason for Visit: STROKE ALERT Hospital Course Hospital Course Pleasant 56-year-old lady with chronic DJD, neck and spine pain, neuropathy, recently noted dark/melanotic stool during visit to primary provider's office had loss of consciousness accompanied by new right-sided weakness, and in the day preceding was having vertigo. She was assessed in ER, with finding of TIA with resolving right-sided weakness, with old lacunar disease on CT of the head, did not require tPA, did have some persistence of vertigo. Assessment with MRI brain showed old lacunar infarcts including right basal ganglia left centrum semiovale. CT angiogram head and neck showed moderate stenosis of internal carotid arteries bilaterally, noted question of occlusion of proximal left vertebral artery, moderate stenosis in the intracranial right internal carotid artery, severe stenosis left cavernous internal carotid artery, small distal left vertebral artery. She continued on aspirin, started on statin, IV fluid. Vertigo, new right-sided weakness symptoms had resolved without recurrence. Additional assessment with carotid Doppler shows right ICA 70-99% stenosis, left ICA less than 50% stenosis. Anterograde flow in vertebral arteries. She is asked to follow-up with neurology for further assessment with regards to vascular disease contributing to her presentation. Please discontinue meloxicam and avoid any NSAIDs due to increased risk of CVA with these medications. She otherwise remained without arrhythmia. TTE with normal ejection fraction, grade 1 diastolic dysfunction, moderate LVH. She otherwise will benefit from long-term optimization of blood pressure control which has been optimized recently. Avoid rapid decreases in blood pressure, and for now blood pressure medications were scaled back due to on occasion noted blood pressure as low as 107/63. Instructed to gradually resume antihypertensives avoiding hypotension. She is started on statin. She is for now switched from aspirin to Plavix due to also concomitant GI bleed, another reason to avoid NSAIDs. She is started on PPI, hemoglobin was further reassessed in the hospital and stabilized at 8. She continues on PPI twice daily at discharge. Will benefit from endoscopic evaluation at some point, although at this time would first make sure neurologic status remained stable. Please reassess blood counts at next visit. She knows to return to the hospital in case of worsened melena, vania blood, or any other symptoms concerning for return of bleeding. At home she also had an episode of fever. This was thought to be related to urinary tract infection with suspicious urinalysis on presentation. Although had vertigo, did not have other otic complaints, with normal-appearing TMs. COVID-19 PCR negative. She remained afebrile, without leukocytosis in the hospital. Received ceftriaxone for suspected urinary tract infection, final culture results are pending. Physical Exam Const: COMMON NORMALS: patient oriented x3 and alert GENERAL APPEARANCE: cooperative NUTRITIONAL APPEARANCE: overweight ORIENTATION/CONSCIOUSNESS: Yes awake HENMT: COMMON NORMALS: oropharynx normal Neck/C-Spine: COMMON NORMALS: no JVD Resp: COMMON NORMALS: normal respiratory effort and clear to auscultation bilaterally AUSCULTATION: clear to auscultation bilaterally Cardio: COMMON NORMALS: no JVD, regular rhythm, S1 normal heart sound present, S2 normal heart sound present and No murmurs present (Cardio) RHYTHM: regular rhythm HEART SOUNDS: S1 normal heart sound present and S2 normal heart sound present GI: COMMON NORMALS: Normal to inspection, nondistended, normoactive bowel sounds present, Soft to palpation and non-tender PALPATION: Yes Soft to palpation Extremity: COMMON NORMALS: no joint enlargement and no pedal edema Neuro: COMMON NORMALS: patient oriented x3 and moves all extremities SENSORIUM/ORIENTATION: Yes alert Skin: COMMON NORMALS: no rashes or lesions noted GENERAL SKIN EXAM: no rashes or lesions noted Discharge Data Studies Completed and Pending Completed Studies During Hospitalization Category Date Time Status CT abdomen pelvis wo con [id number] Stat Cat Scan 06/01/22 22:[address] head wo con* [id number] Stat Cat Scan 06/01/22 18:29 Completed CTA head neck [CT angio headneck* [id number]] Stat Cat Scan 06/02/22 00:12 Completed XR chest 1V portable [id number] Stat Exams 06/01/22 18:28 Completed MR head wo/w con [id number] Stat MRI 06/01/22 19:54 Completed CV carotid duplex BI* [id number] Routine Ultrasound 06/02/22 11:30 Completed CV. echo complete* [id number] Stat Ultrasound 06/02/22 00:12 Completed Pending at discharge Category Date Time Status Basic Metabolic Panel AM LABS Lab 06/04/22 04:00 Ordered Basic Metabolic Panel AM LABS Lab 06/05/22 04:00 Ordered Blood Culture Stat Lab 06/01/22 18:48 Results Complete Blood Count w/Auto AM LABS Lab 06/04/22 04:00 Ordered Complete Blood Count w/Auto AM LABS Lab 06/05/22 04:00 Ordered Urine Culture Stat Lab 06/01/22 21:39 Results Radiology Impressions Chest X-Ray 06/01/22 18:28 IMPRESSION: No acute findings. Head CT 06/01/22 18:29 IMPRESSION: Old lacunar disease. No acute intracranial finding. ASSESSMENT: ASPECTS ([place] Stroke Program Early CT Score) is 10. Head MRI 06/01/22 19:54 IMPRESSION: 1. Old lacunar infarcts. 2. No acute intracranial abnormality. ADDENDUM: 06/01/22 1822 Addendum: This study was done as a MRI brain without and with intravenous contrast and includes postcontrast sequences in the imaging protocol. Abdomen/Pelvis CT 06/01/22 22:04 IMPRESSION: 1. Cholelithiasis 2. No acute findings in the abdomen or pelvis. Head/Neck CTA 06/02/22 00:12 IMPRESSION: 1. Moderate stenosis in the intracranial right internal carotid artery.. 2. Severe stenosis left cavernous internal carotid artery 3. Small distal left vertebral artery. IMPRESSION: 1. Moderate stenosis proximal right internal carotid artery. 2. Moderate stenosis proximal left internal carotid artery 3. Question of occlusion of proximal left vertebral artery REFERENCES: NASCET CRITERIA. The degree of stenosis in the cervical segment of the internal carotid artery is based on NASCET criteria. Normal is no stenosis. Mild is less than 50% stenosis. Moderate is 50-69% stenosis. Severe is 70% to 99% stenosis. Total occlusion is no detectable patent lumen. Laboratory Results WBC 6.0 10^3/uL (4.0-10.0) 10/12/22 04:20 RBC 2.63 10^6/uL (4.1-5.3) L 06/03/22 04:20 Hgb 8.0 g/dL (11.5-15.3) L 06/03/22 04:20 Hct 24.2 % (37.0-47.0) L 06/03/22 04:20 MCV 92.0 fl (81-99) 06/03/22 04:20 MCH 30.4 pg (28.0-34.0) 06/03/22 04:20 MCHC 33.1 g/dL (30.0-36.0) 06/03/22 04:20 RDW 13.4 % (12.1-15.1) 06/03/22 04:20 Plt Count 178 10^3/cmm (130-400) 06/03/22 04:20 MPV 10.6 fL (7.4-10.4) H 06/03/22 04:20 Neut % (Auto) 70.1 % 06/03/22 04:20 Lymph % (Auto) 20.9 % 06/03/22 04:20 [place] % (Auto) 5.6 % 06/03/22 04:20 Eos % (Auto) 2.2 % 06/03/22 04:20 Baso % (Auto) 0.7 % 06/03/22 04:20 Neut # (Auto) 4.24 10^3/uL (1.8-7.7) 06/03/22 04:20 Lymph # (Auto) 1.3 10^3/uL (0.8-4.8) 06/03/22 04:20 [place] # (Auto) 0.3 10^3/uL (0.2-0.9) 06/03/22 04:20 Eos # (Auto) 0.1 10^3/uL (0.0-0.8) 06/03/22 04:20 Baso # (Auto) 0.0 10^3/uL (0.0-0.1) 06/03/22 04:20 Nucleated RBC % (auto) 0 % 06/03/22 04:20 Nucleated RBCs # 0.0 /100WBC 06/03/22 04:20 PT 13.40 SECONDS (12.1-14.9) 06/03/22 04:20 INR 0.99 (0.8-1.2) 06/03/22 04:20 APTT 20.9 SECONDS (23.9-36.7) L 06/03/22 04:20 Sodium 137 mmol/L (136-145) 06/03/22 04:20 Potassium 3.9 mmol/L (3.5-5.1) 06/03/22 04:20 Chloride 104 mmol/L (98-107) 06/03/22 04:20 Carbon Dioxide 21 mmol/L (22-29) L 06/03/22 04:20 Anion Gap 15.9 (5-19) 06/03/22 04:20 BUN 16 mg/dL (6-20) 06/03/22 04:20 Creatinine 0.9 mg/dL (0.5-0.9) 06/03/22 04:20 GFR Calculation 64.3 mL/min (90-130) L 06/03/22 04:20 Glucose 107 mg/dL (65-115) 06/03/22 04:20 Calculated Osmolality 286 mOsm/kg (285-295) 06/03/22 04:20 Lactate 1.6 mmol/L (0.5-2.2) 06/01/22 18:44 Calcium 8.6 mg/dL (8.5-10.5) 06/03/22 04:20 Magnesium 2.0 mg/dL (1.7-2.3) 06/03/22 04:20 Total Bilirubin 0.3 mg/dL (0.15-1.2) 06/01/22 18:44 AST 17 U/L (0-32) 06/01/22 18:44 ALT 16 U/L (0-33) 06/01/22 18:44 Alkaline Phosphatase 61 U/L (35-105) 06/01/22 18:44 Total Protein 6.3 g/dL (6.6-8.7) L 06/01/22 18:44 Albumin 3.8 g/dL (3.5-5.2) 06/01/22 18:44 Globulin 2.5 g/dL (1.3-4.6) 06/01/22 18:44 Lipase 17 U/L (13-60) 06/01/22 18:44 Procalcitonin 0.05 ng/mL (0-0.5) 06/03/22 04:20 Urine Color Yellow (Yellow) 06/01/22 21:39 Urine Appearance Clear (CLEAR) 06/01/22 21:39 Urine pH 5 (5-7) 06/01/22 21:39 Ur Specific [place] 1.015 (1.005-1.030) 06/01/22 21:39 Urine Protein Neg (Negative) 06/01/22 21:39 Urine Glucose (UA) Norm (Normal) 06/01/22 21:39 Urine Ketones Negative (Negative) 06/01/22 21:39 Urine Blood 2+ (Negative) H 06/01/22 21:39 Urine Nitrate Positive (Negative) H 06/01/22 21:39 Urine Bilirubin Neg (Negative) 06/01/22 21:39 Urine Urobilinogen Norm mg/dL (Negative) 06/01/22 21:39 Ur Leukocyte Esterase 2+ (Negative) H 06/01/22 21:39 Urine RBC 5-10 /hpf (0-2) H 06/01/22 21:39 Urine WBC 40-55 /hpf (0-5) H 06/01/22 21:39 Ur Squamous Epith Cells 0-4 /hpf (0-5) H 06/01/22 21:39 Amorphous Sediment Not Reportable 06/01/22 21:39 Urine Bacteria 3+ /hpf (NONE) H 06/01/22 21:39 Urine Opiates Screen Positive ng/mL (Negative) H 06/01/22 21:39 Ur Barbiturates Screen Negative ng/mL (Negative) 06/01/22 21:39 Ur Phencyclidine Scrn Negative ng/mL (Negative) 06/01/22 21:39 Ur Amphetamines Screen Negative ng/mL (Negative) 06/01/22 21:39 U Benzodiazepines Scrn Positive ng/mL (Negative) H 06/01/22 21:39 Urine Cocaine Screen Negative ng/mL (Negative) 06/01/22 21:39 U Marijuana (THC) Screen Negative ng/mL (Negative) 06/01/22 21:39 Coronavirus 229E (PCR) Not detected (NOT DETECT) 06/02/22 12:35 SARS-CoV-2 (PCR) Not detected (NOT DETECT) 06/02/22 12:35 SARS-CoV-2 Ag (Rapid) negative (Negative) 06/01/22 19:44 Vitals Last Vital Signs Temp 98.1 F 06/03/22 11:28 Pulse 95 06/03/22 11:28 Resp 18 06/03/22 11:28 BP 169/78 06/03/22 11:28 Pulse Ox 98 06/03/22 11:28 O2 Del Method 06/03/22 11:28 Discharge Plan Discharge Patient Disposition: Home Condition: Stable Prescriptions: New atorvastatin 40 mg Tablet 40 mg PO DAILY Qty: 90 0RF clopidogrel 75 mg Tablet 75 mg PO DAILY Qty: 90 0RF pantoprazole 40 mg tablet,delayed release (DR/EC) 40 mg PO BID 42 Days Qty: 84 0RF cefdinir 300 mg capsule 300 mg PO BID 3 Days Qty: 6 0RF Continued alprazolam 0.25 mg tablet 0.25 mg PO TID PRN (Reason: anxiety) Qty: 60 1RF hydrocodone-acetaminophen 10-325 mg tablet 1 - 2 tab PO Q4H PRN (Reason: Pain) Changed carvedilol 25 mg tablet 12.5 mg PO BID Qty: 1 0RF amlodipine 5 mg tablet 5 mg PO DAILY Qty: 60 12RF Discontinued meloxicam 15 mg tablet 15 mg PO DAILY Qty: 30 12RF aspirin 81 mg tablet,delayed release (DR/EC) 81 mg PO DAILY Qty: 30 0RF hydrochlorothiazide 25 mg tablet 25 mg PO DAILY Qty: 30 11RF Discharge Orders: Discharge Order (Routine); Ordered 06/03/22 Ordered By: John Bob Referrals: [facility] [Provider Group] - 06/12/22 10:00 am Slava Prince MD [Primary Care Provider] - 06/10/22 9:20 am Discharge Diet: Cardiac Discharge Activity: Increase activity as tolerated Patient Instructions: Clopidogrel (By mouth), Pantoprazole (By mouth), Transient Ischemic Attack (GEN), Gastrointestinal Bleeding (GEN), Urinary Tract Infection in Women (GEN), Carotid Artery Disease (GEN), Melena (GEN) Activity Restrictions/Additional Instructions: Please discuss with your primary doctor regarding TIA. Follow-up also with neurology. Please discontinue meloxicam as it and other NSAIDs can increase risk of TIA but also GI bleeding. At this time please stop taking aspirin as well as per discussion with switch to Plavix. Please avoid any sudden decreases in blood pressure, long-term you will want to aim to have blood pressure around 120/80, but this will need to be achieved slowly/gradually. Please discuss with your primary doctor as well as with neurologist regarding carotid disease. You are started on a statin medication as well. For now decrease carvedilol to 12.5 mg twice daily, moping to 5 mg daily, hold HCT as he, over the next days to week gradually resume medications avoiding blood pressures lower than 100 mmHg top number or 50 mmHg bottom number. If blood pressures persistently rise above 130/80, gradually increase blood pressure medication doses 1 at a time to your recent regimen with amlodipine 5 mg twice a day, carvedilol 25 mg twice a day, HCTZ 25 mg daily. Please have your primary doctor reassess blood counts in office for reassessment after GI bleeding. Continue Protonix twice daily. Again, please discontinue meloxicam and avoid any NSAIDs. Please discuss with your primary doctor when it may be safe to further assess with endoscopic evaluation to exclude any concerning sources of bleeding, exclude malignancy, etc., your neurologic condition will need to remain steady to be able to safely proceed to endoscopic evaluation. Please follow-up with your primary doctor with regards to urinary tract infection, urine culture is still pending. Discharge Attestations Time Spent in Discharge Care*: greater than 30 min Quality Metrics Clinical Quality Measures [ Cerebrovascular Accident { Contraindication to Antithrombotic: None; antithrombotic prescribed; Contraindication to Anticoagulation: Overlap treatment not indicated; Contraindication to Statin: None; Statin prescribed;}] Coding Level of Care Code Acute [facility] note Diagnoses Acute anemia D64.9 Melena K92.1 TIA (transient ischemic attack) G45.9 UTI (urinary tract infection) N39.0 Fever R50.9 Hypertension I10 Anemia D64.9
--- NOTE | 2022-06-03 13:45 | PC.NURSE ---
Discussed discharge, follow up appointments, new and discontinued medications.
== END 2022-06-03 12:15 | disposition home or self-care (01) ==
LOC: ER 23:53 → MEDSURG 06-02 00:42
PROVIDERS: Student in an Organized Health Care Education/Training Program; Admitting Provider Internal Medicine; Emergency Provider Emergency Medicine; PCP Family Medicine; Visit Provider Internal Medicine
DX: D64.9 Anemia, unspecified (principal); K92.1 Melena; G45.9 Transient cerebral ischemic attack, unspecified; N39.0 Urinary tract infection, site not specified; R50.9 Fever, unspecified; I10 Essential (primary) hypertension; I65.23 Occlusion and stenosis of bilateral carotid arteries; Z79.82 Long term (current) use of aspirin; Z86.16 Personal history of COVID-19
CPT/HCPCS: 36415; 70450; 70496; 70498; 70553; 71045; 74176; 80048; 80053; 80306; 81001; 83605; 83690; 83735; 84145; 85018; 85025; 85610; 85730; 87040; 87077; 87086; 87186; 87426; 87635; 92523; 92610; 93005; 93306; 93880; 96365; 96366; 96375; 97116; 97161; 97165; 99285; A9577; C9113; G0378; J0696; J2405; J7030; Q9967

== ENCOUNTER 2022-06-07 11:11 | Observation (INO) | payer BC, SELFPAY ==
[2022-06-07] VITALS (63 sets, daily range): BP systolic 158–197; BP diastolic 82–99; PULSE 67–84; RESP 11–24; TEMP 36.3–36.8; O2SAT 93–100; BMI 31.4
--- NOTE | 2022-06-07 11:26 | W.ED.AMS ---
HPI - Altered Mental Status General: Chief Complaint: Altered Mental Status Stated Complaint: Previous mini strokes, speech issues Time Seen by Provider: 06/07/22 11:25 Limitations: altered mental status History of Present Illness: Ms. Plasencia is a 56-year-old right-handed lady with significant past medical history of hypertension and hospitalization for TIA presenting to the emergency department for persistent neurologic symptoms. She was seen on 06/01/2022 and admitted for stroke evaluation and discharged on 06/03. At that time she still at minimal expressive aphasia however on 06/04 she began to worsen again. She has had progressive symptoms to the point of only saying a few words and simple words at this point. Denies any other new neurologic symptoms or specific provoking changes in health. Overall course is worsened. Intensity is moderate to severe. Onset (ago): day(s) Severity: severe Review of Systems General: Reports: 10 or more systems reviewed and unremarkable except in HPI and below PFSH ED PFSH: Medical History (Updated 06/12/22 @ 11:07 by Brenden Davison, NIGHT SHIFT MANAGER, MSN, AGAP-) Acute anemia Anemia Carotid artery stenosis with cerebral infarction within last 8 weeks COVID-19 GI bleed Hypertension Infection due to ESBL-producing Escherichia coli LVH (left ventricular hypertrophy) Melena Transient cerebral ischemia Surgical History H/O tubal ligation History of back surgery History of History of carpal tunnel surgery Hx of appendectomy Hx of tonsillectomy Family History Other Hypertension Parkinsons disease Social History Smoking and tobacco status: former smoker Alcohol intake: current Alcohol intake frequency: holidays/special occasions only 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[place], [place] Physical Exam Const: COMMON NORMALS: patient oriented x3 and alert GENERAL APPEARANCE: cooperative and well developed HENMT: COMMON NORMALS: normocephalic and atraumatic HEAD & SCALP: normocephalic and atraumatic Eye: COMMON NORMALS: conjunctivae normal CONJUNCTIVA: Yes conjunctivae normal SCLERA: sclerae normal Neck/C-Spine: COMMON NORMALS: supple GENERAL: Yes trachea midline Resp: COMMON NORMALS: normal respiratory effort EFFORT & INSPECTION: Yes able to speak in complete sentences Cardio: COMMON NORMALS: regular rate and regular rhythm RATE: regular rate RHYTHM: regular rhythm GI: COMMON NORMALS: Soft to palpation PALPATION: Yes Soft to palpation and No Tenderness to palpation present (GI) Extremity: GENERAL: Yes normal exam except as noted and No edema Neuro: COMMON NORMALS: patient oriented x3, moves all extremities and no sensory deficits noted; negative for CN's II-XII intact bilaterally and negative for no focal motor deficits SENSORIUM/ORIENTATION: Yes alert and No Orientation impaired OTHER: Expressive and mildly receptive aphasia. Patient able to say simple words however requires repeat instruction for following commands. Speech appears normal. Minimally decreased strength in right compared to left upper extremity. Psych: COMMON NORMALS: mental status grossly normal and Normal thought process present THOUGHT PROCESS: Normal thought process present Course Vital Signs: Vital signs: Vital Signs Temperature 97.8 F 06/10/22 12:37 Pulse Rate 71 06/10/22 12:37 Respiratory Rate 15 06/10/22 12:37 Blood Pressure 150/75 06/10/22 12:37 Pulse Oximetry 96 06/10/22 12:37 Oxygen Delivery Me thod 06/10/22 08:00 MDM - Altered Mental Status Medical Decision Making 56-year-old lady presenting with progressive strokelike symptoms. Patient is outside tPA window. Exam notable for word finding and both moderate expressive and mild receptive aphasia. Perhaps mild right upper extremity weakness compared to contralateral side. Laboratory studies reviewed. EKG and imaging studies reviewed. Discussed case with [place] stroke neurology note based on previous evaluation no acute indication for surgical procedure transfer. Recommend aggressive medical management including adding aspirin and increasing statin to 80 mg. Additionally he recommended admission for MRI and outpatient neurology follow-up. We will plan to treat UTI though patient was previously on medication for this as well. Admitted for further management. Patient and patient's family agreeable with plan. Medical Records I reviewed the patient's medical records. Lab Data I reviewed the patient's lab results. : 06/10/22 04:13 06/07/22 17:[address] 06/07/22 11:37 IMPRESSION: There are senescent changes of the brain as described above. No evidence for large acute ischemic infarction or acute intracranial injury.Please note acute ischemia can be occult by head CT. Consider MRI of the brain with diffusion-weighted images if occult ischemia is suspected. ASSESSMENT: ASPECTS ([place] Stroke Program Early CT Score) is 10. Head MRI 06/08/22 15:21 IMPRESSION: 1. New acute LEFT watershed infarcts. Watershed infarct between the border zones of several different arterial territories. Infarcts extend along the lateral border of the LEFT ventricle and into the posterior frontal parietal cortex and a few small lacunar infarcts in the LEFT temporal lobe. Nonhemorrhagic. No acute thrombus identified in the visualized carotid artery. 2. Otherwise moderate small vessel ischemic disease, slightly more than expected for a patient of this age. Laboratory Results WBC 6.8 10^3/uL (4.0-10.0) 06/07/22 12:30 RBC 3.16 10^6/uL (4.1-5.3) L 06/07/22 12:30 Hgb 9.6 g/dL (11.5-15.3) L 06/07/22 12:30 Hct 28.0 % (37.0-47.0) L 06/07/22 12:30 MCV 88.6 fl (81-99) 06/07/22 12:30 MCH 30.4 pg (28.0-34.0) 06/07/22 12:30 MCHC 34.3 g/dL (30.0-36.0) 06/07/22 12:30 RDW 14.0 % (12.1-15.1) 06/07/22 12:30 Plt Count 327 10^3/cmm (130-400) 06/07/22 12:30 MPV 10.2 fL (7.4-10.4) 06/07/22 12:30 Neut % (Auto) 62.5 % 06/07/22 12:30 Lymph % (Auto) 25.7 % 06/07/22 12:30 [place] % (Auto) 7.0 % 06/07/22 12:30 Eos % (Auto) 3.5 % 06/07/22 12:30 Baso % (Auto) 0.9 % 06/07/22 12:30 Neut # (Auto) 4.25 10^3/uL (1.8-7.7) 06/07/22 12:30 Lymph # (Auto) 1.8 10^3/uL (0.8-4.8) 06/07/22 12:30 [place]ane # (Auto) 0.5 10^3/uL (0.2-0.9) 06/07/22 12:30 Eos # (Auto) 0.2 10^3/uL (0.0-0.8) 06/07/22 12:30 Baso # (Auto) 0.1 10^3/uL (0.0-0.1) 06/07/22 12:30 Nucleated RBC % (auto) 0 % 06/07/22 12:30 Nucleated RBCs # 0.0 /100WBC 06/07/22 12:30 Sodium 132 mmol/L (136-145) L 06/07/22 12:30 Potassium 3.8 mmol/L (3.5-5.1) 06/07/22 12:30 Chloride 95 mmol/L (98-107) L 06/07/22 12:30 Carbon Dioxide 28 mmol/L (22-29) 06/07/22 12:30 Anion Gap 12.8 (5-19) 06/07/22 12:30 BUN 16 mg/dL (6-20) 06/07/22 12:30 Creatinine 1.1 mg/dL (0.5-0.9) H 06/07/22 12:30 GFR Calculation 51.0 mL/min (90-130) L 06/07/22 12:30 Glucose 122 mg/dL (65-115) H 06/07/22 12:30 POC Glucose 115 mg/dL (70-110) H 06/07/22 12:52 Calculated Osmolality 276 mOsm/kg (285-295) L 06/07/22 12:30 Calcium 9.7 mg/dL (8.5-10.5) 06/07/22 12:30 Total Bilirubin 0.4 mg/dL (0.15-1.2) 06/07/22 12:30 AST 19 U/L (0-32) 06/07/22 12:30 ALT 17 U/L (0-33) 06/07/22 12:30 Alkaline Phosphatase 66 U/L (35-105) 06/07/22 12:30 Total Protein 7.1 g/dL (6.6-8.7) 06/07/22 12:30 Albumin 4.5 g/dL (3.5-5.2) 06/07/22 12:30 Globulin 2.6 g/dL (1.3-4.6) 06/07/22 12:30 Urine Color Yellow (Yellow) 06/07/22 12:58 Urine Appearance Clear (CLEAR) 06/07/22 12:58 Urine pH 6 (5-7) 06/07/22 12:58 Ur Specific [place] 1.010 (1.005-1.030) 06/07/22 12:58 Urine Protein Neg (Negative) 06/07/22 12:58 Urine Glucose (UA) Norm (Normal) 06/07/22 12:58 Urine Ketones Negative (Negative) 06/07/22 12:58 Urine Blood 2+ (Negative) H 06/07/22 12:58 Urine Nitrate Positive (Negative) H 06/07/22 12:58 Urine Bilirubin Neg (Negative) 06/07/22 12:58 Urine Urobilinogen Norm mg/dL (Negative) 06/07/22 12:58 Ur Leukocyte Esterase 2+ (Negative) H 06/07/22 12:58 Urine RBC 5-10 /hpf (0-2) H 06/07/22 12:58 Urine WBC 25-40 /hpf (0-5) H 06/07/22 12:58 Ur Squamous Epith Cells Rare /hpf (0-5) 06/07/22 12:58 Amorphous Sediment Not Reportable 06/07/22 12:58 Urine Bacteria 3+ /hpf (NONE) H 06/07/22 12:58 Discharge Plan Discharge Patient Disposition: Placed in Observation Admit Provider: John Bob Clinical Impression: UTI (urinary tract infection), Stroke-like symptom Discharge Diet: Cardiac Discharge Activity: Resume usual activity and Increase activity as tolerated Coding Level of Care Code ED Retail Reset Merchandiser for Chg Fwd Exam Comprehensive
--- NOTE | 2022-06-07 11:37 | CTR_ITS ---
PROCEDURE INFORMATION: Exam: CT Head Without Contrast Exam date and time: 06/07/2022 12:08 PM Age: 56 years old Clinical indication: Stroke-like symptoms; Expressive aphasia; TECHNIQUE: Imaging protocol: Computed tomography of the head without contrast. Radiation optimization: All CT scans at this facility use at least one of these dose optimization techniques: automated exposure control; mA and/or kV adjustment per patient size (includes targeted exams where dose is matched to clinical indication); or iterative reconstruction. Other technique: STROKE PROTOCOL was implemented. COMPARISON: MR head wo/w con [id number] 06/01/2022 8:55 PM RADIATION DOSE METRICS: Total DLP (mGy-cm): 975.08 FINDINGS: Brain: Periventricular and subcortical white matter low densities are present which at this age likely represent microvascular ischemic change. There are chronic lacunar infarcts in the left centrum semiovale and basal ganglia.No evidence for large acute ischemic infarction. Please note acute ischemia can be occult by head CT. Cerebral ventricles: No ventriculomegaly. Paranasal sinuses: Visualized sinuses are unremarkable. No fluid levels. Mastoid air cells: Visualized mastoid air cells are well aerated. Bones/joints: Unremarkable. No acute fracture. Soft tissues: Unremarkable. Vasculature: Calcified plaque is present within the carotid siphons. CT/CT head wo con* [id number] IMPRESSION: There are senescent changes of the brain as described above. No evidence for large acute ischemic infarction or acute intracranial injury.Please note acute ischemia can be occult by head CT. Consider MRI of the brain with diffusion-weighted images if occult ischemia is suspected. ASSESSMENT: ASPECTS ([place] Stroke Program Early CT Score) is 10.
[2022-06-07] MEDS: sodium chloride 0.9% 1,000 ML 999 ML IV (12:27)
[2022-06-07 12:45] LABS: Basophils # 0.1 10^3/uL (0.0-0.1); Basophils % 0.9 %; Eosinophils # 0.2 10^3/uL (0.0-0.8); Eosinophils % 3.5 %; Hemoglobin 9.6 g/dL (11.5-15.3); Lymphocytes # 1.8 10^3/uL (0.8-4.8); Lymphocytes % 25.7 %; Mean Corpuscular HGB Conc 34.3 g/dL (30.0-36.0); Mean Corpuscular Hemoglobin 30.4 pg (28.0-34.0); Mean Corpuscular Volume 88.6 fl (81-99); Mean Platelet Volume 10.2 fL (7.4-10.4); Monocytes # 0.5 10^3/uL (0.2-0.9); Neutrophils # 4.25 10^3/uL (1.8-7.7); Neutrophils % 62.5 %; Nucleated Red Blood Cells % 0 %; Platelet Count 327 10^3/cmm (130-400); Red Blood Count 3.16 10^6/uL (4.1-5.3); White Blood Count 6.8 10^3/uL (4.0-10.0)
[2022-06-07 12:56] LABS: Glucose Point of Care 115 mg/dL (70-110)
[2022-06-07 13:04] LABS: Alanine Aminotransferase 17 U/L (0-33); Albumin Level 4.5 g/dL (3.5-5.2); Alkaline Phosphatase 66 U/L (35-105); Anion Gap 12.8 (5-19); Aspartate Amino Transferase 19 U/L (0-32); Blood Urea Nitrogen 16 mg/dL (6-20); Calcium 9.7 mg/dL (8.5-10.5); Carbon Dioxide 28 mmol/L (22-29); Chloride 95 mmol/L (98-107); Globulin 2.6 g/dL (1.3-4.6); Glucose 122 mg/dL (65-115); Osmolality Calculated 276 mOsm/kg (285-295); Potassium 3.8 mmol/L (3.5-5.1); Sodium 132 mmol/L (136-145); Total Bilirubin 0.4 mg/dL (0.15-1.2); Total Protein 7.1 g/dL (6.6-8.7)
--- NOTE | 2022-06-07 13:08 | PC.NURSE ---
Initial Assessment.... patient is alert, unsure on mental status as patient has expressive aphasia and cannot communicate well. SHe appears to understand questioning, but always responds with yes or no whether it is appropriate or not, occasionally will have nonsensical or garbled responses. Left sided facial droop present, no other deficits. Follows commands well.
[2022-06-07] MEDS: aspirin 325 mg Tablet PO (13:17)
[2022-06-07 13:22] LABS: Add Urine Microscopic? YES; Bilirubin Urine Neg (Negative); Blood Urine 2+ (Negative); Glucose Urine UA Norm (Normal); Ketones Urine Negative (Negative); Leukocyte Esterase Urine 2+ (Negative); Nitrate Urine Positive (Negative); Protein Urine Neg (Negative); Urine Appearance Clear (CLEAR); Urine Color Yellow (Yellow); Urobilinogen Urine Norm (Negative); WBC Urine 25-40 /hpf (0-5); pH Urine 6 (5-7)
[2022-06-07 13:23] LABS: Add Urine Culture? Yes; Bacteria Urine 3+ /hpf; Squamous Epithelial Cell Urine RARE /hpf (0-5)
[2022-06-07] MEDS: cefTRIAXone 1,000 MG in sodium chloride 0.9% (plus) 50 ML 100 MG IV (13:54)
--- NOTE | 2022-06-07 14:56 | PM.HP ---
Providers/Chief Complaint Primary Care Provider: Slava Prince MD Chief Complaint: Previous mini strokes, speech issues History of Present Illness Pleasant 56-year-old lady recently hospitalized with TIA after transient loss of consciousness, right-sided weakness, symptoms preceded by vertigo, melena/UGI bleed, UTI, neurological work-up revealing old lacunar infarcts, including right basal ganglia left centrum semiovale. CT angiogram head and neck showed moderate stenosis of internal carotid arteries bilaterally, noted question of occlusion of proximal left vertebral artery, moderate stenosis in the intracranial right internal carotid artery, severe stenosis left cavernous internal carotid artery, small distal left vertebral artery. Carotid Doppler shows right ICA 70-99% stenosis, left ICA less than 50% stenosis. Anterograde flow in vertebral arteries. She was started on Plavix, atorvastatin, asked to discontinue meloxicam, follow-up with neurology, primary provider for continued optimization of risk factors of cardiovascular disease, optimization of blood pressure control. She was additionally treated with PPI IV twice daily, melanotic stools improving, hemoglobin stabilized and Will ultimately need endoscopic evaluation. She was also found to have urinary tract infection eventually growing E. coli resistant to quinolones, nitrofurantoin and tetracycline, continued on course of cefdinir. She states she has been taking her medications. Since 06/04 has had more difficulties in communication, progressive word finding difficulty up to moderately-severe aphasia seen currently. In ER noted hypertensive 180/99, afebrile, without leukocytosis. Hemoglobin 9.6. CT head with senescent changes of the brain no evidence for large acute ischemic infarction or acute intracranial injury. Her case was discussed with telestroke neurology service in ER. She was not found candidate for acute intervention, with recommendation for aggressive medical management including addition of aspirin, escalation of statin therapy. Additional assessment by MRI and outpatient neurology follow-up. Urinary findings again suggestive of UTI, 25-40 WBC, 5-10 RBC, positive nitrate, 3+ bacteria for which she received a dose of ceftriaxone. Review of Systems Const: Denies: fever(s), chills, body aches or malaise Eyes: Denies: change in vision, eye discomfort or eye redness ENMT: Denies: throat pain, oral sores or ear or mastoid pain Card: Denies: chest pain, edema, pre-syncope or dyspnea on exertion Resp: Denies: dyspnea, productive cough, change in phlegm color or hemoptysis GI: Denies: abdominal pain, nausea, vomiting, diarrhea, constipation, hematochezia or melena : Denies: flank pain, urinary frequency or hematuria Musc: Denies: back pain, joint swelling or joint redness Skin/Breast: Denies: rash or new lesions Neuro: Reports: difficulty communicating thoughts; Denies: headache(s), numbness in extremities, weakness in extremities, dizziness or seizure-like activity Endo: Denies: polyuria or polydipsia Sourav/Lymph: Denies: easy bleeding or tender lymph nodes All/Imm: Denies: urticaria or tongue swelling Medications/Allergies Home Medications Medication Instructions Recorded Confirmed Last Taken Type hydrocodone 10 mg-acetaminophen 1 - 2 tab PO Q4H PRN Pain 05/21/20 06/01/22 05/27/20 History 325 mg tablet alprazolam 0.25 mg tablet 0.25 mg PO TID PRN anxiety #60 tabs 05/12/22 06/01/22 Unknown Rx amlodipine 5 mg tablet 5 mg PO DAILY #60 tabs 06/03/22 06/01/22 06/01/22 Rx atorvastatin 40 mg tablet 40 mg PO DAILY #90 tabs 06/03/22 Unknown Rx carvedilol 25 mg tablet 12.5 mg PO BID #1 tab 06/03/22 06/01/22 06/01/22 Rx clopidogrel 75 mg tablet 75 mg PO DAILY #90 tabs 06/03/22 Unknown Rx pantoprazole 40 mg tablet,delayed 40 mg PO BID 6 weeks #84 tabs 06/03/22 Unknown Rx release Allergies Allergy/AdvReac Type Severity Reaction Status Date / Time Sulfa (Sulfonamide Allergy Unknown Verified 06/01/22 19:00 Antibiotics) PFSH Acute PFSH: Medical History GI bleed Hypertension TIA (transient ischemic attack) Surgical History H/O tubal ligation History of back surgery History of History of carpal tunnel surgery Hx of appendectomy Hx of tonsillectomy Family History Other Hypertension Parkinsons disease Social History Smoking and tobacco status: former smoker Alcohol intake: current Alcohol intake frequency: holidays/special occasions only Substance/Drug Use: never Current occupation: [employer] at [employer] [place] Vitals/I&O/Wt Last Vital Signs Temp 97.9 F 06/07/22 11:17 Pulse 68 06/07/22 13:00 Resp 17 06/07/22 13:00 BP 180/99 06/07/22 13:00 Pulse Ox 100 06/07/22 13:00 O2 Del Method 06/07/22 11:17 Weight last 48 hrs Weight 78.018 kg Physical Exam Narrative: Accompanied by family. Const: COMMON NORMALS: patient oriented x3 and alert GENERAL APPEARANCE: cooperative ORIENTATION/CONSCIOUSNESS: Yes awake OTHER: Tearful. HENMT: COMMON NORMALS: oropharynx normal Neck/C-Spine: COMMON NORMALS: no JVD Resp: COMMON NORMALS: normal respiratory effort and clear to auscultation bilaterally AUSCULTATION: clear to auscultation bilaterally Cardio: COMMON NORMALS: no JVD, regular rhythm, S1 normal heart sound present, S2 normal heart sound present and No murmurs present (Cardio) RHYTHM: regular rhythm HEART SOUNDS: S1 normal heart sound present and S2 normal heart sound present GI: COMMON NORMALS: Normal to inspection, nondistended, normoactive bowel sounds present, Soft to palpation and non-tender PALPATION: Yes Soft to palpation Extremity: COMMON NORMALS: no joint enlargement and no pedal edema Neuro: COMMON NORMALS: moves all extremities SENSORIUM/ORIENTATION: Yes alert COORDINATION/BALANCE: [id number] test normal (Somewhat slow) SPEECH: expressive aphasia (Moderate to severe) SENSORY EXAM: Yes extremities (Symmetrical) and Normal double simultaneous stimulation for sensation MOTOR EXAM: Pronator motor function not present OTHER: Awake, alert, responding, following directions, although sometimes needs additional cueing. No facial droop. Tracking horizontally. Visual good appear full to confrontation, although initially with possibly of left upper quadrantanopsia or extinction to double simultaneous stimulation, although could not reproduce this, possibly some difficulty following directions. Skin: COMMON NORMALS: no rashes or lesions noted GENERAL SKIN EXAM: no rashes or lesions noted Data : 06/07/22 12:30 06/07/22 12:30 A&P Assessment and plan (1) Acute CVA (cerebrovascular accident): Moderate to severe aphasia, additional assessment recommended with MRI, refer to prior work-up on recent admission. Continue Plavix, add aspirin. Escalate statin to 80 mg daily. Recent GI bleed, monitor hemoglobin. She has so far melena had subsided, hemoglobin appears steady on presentation. Continue PPI twice daily. Permissive hypertension at this time. Subsequently would benefit long-term from optimization of blood pressure control. States she has not been measuring her blood pressures at home, is not sure how they were running. Last TTE normal EF, moderate LVH, grade 1 diastolic dysfunction. Will obtain bubble study. ST, PT, OT assessment. Follow-up with neurology in office. Treat UTI. (2) UTI (urinary tract infection): Continue ceftriaxone. Follow-up urine culture. (3) Hypertension: Permissive hypertension for now. Long-term would benefit from optimization of blood pressure control. Plan GIB: Recent GI bleed with melanotic stools, so far melena has resolved, continues on PPI twice daily. Has tolerated Plavix. Currently adding aspirin. Continue PPI twice daily. Ultimately will need assessment with endoscopy. Anemia Attestations Medical Necessity Statement*: Place in observation for additional assessment management of acute CVA, UTI, with recommended escalation of antiplatelet therapy, with recent GI bleeding. 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
--- NOTE | 2022-06-07 15:21 | USCV_ITS ---
CalvinjacintoBere oates Age: 56 Gender: F : 1965 Exam Date: 06/07/2022 15:42 Ordering Phys: John Bob MD Technologist: Tosha Gonzalez [place] [facility] [place]: [place] BP: / HR: Rhythm: Sinus Technical Quality: Adequate MEASUREMENTS (Male / Female) Normal Values FINDINGS Left Ventricle Right Ventricle Right Atrium Left Atrium Mitral Valve Aortic Valve Tricuspid Valve Pulmonic Valve Pericardium Aorta IVC CONCLUSIONS LV systolic function is normal with EF of 55 to 60%. No regional wall motion abnormalities are seen. No intracardiac shunt is seen on bubble study Sreekanth Yu MD (Electronically Signed) Final Date: 07 June 2022 22:30 S
[2022-06-07] MEDS: heparin 5,000 unit/mL INJ 1 mL 5000 UNIT SUBCUT (17:37)
[2022-06-07] MEDS: HYDROcodone-acetaminophen 10-325 mg Tablet 1 TAB PO ×2 (18:24→23:54)
[2022-06-07] MEDS: pantoprazole DR 40 mg Tablet PO (18:28)
[2022-06-07 18:49] LABS: Anion Gap 12.5 (5-19); Blood Urea Nitrogen 16 mg/dL (6-20); Calcium 9.3 mg/dL (8.5-10.5); Carbon Dioxide 27 mmol/L (22-29); Chloride 97 mmol/L (98-107); Glomerular Filtration Rate 56.9 mL/min (90-130); Glucose 98 mg/dL (65-115); Osmolality Calculated 277 mOsm/kg (285-295); Potassium 3.5 mmol/L (3.5-5.1); Sodium 133 mmol/L (136-145)
[2022-06-08] VITALS: BP 168/80; PULSE 72; RESP 17; TEMP 36.4; O2SAT 94
[2022-06-08 04:00] VITALS: BP 151/87; PULSE 64; RESP 17; TEMP 36.4; O2SAT 94
[2022-06-08 04:55] LABS: Basophils # 0.1 10^3/uL (0.0-0.1); Basophils % 0.8 %; Eosinophils # 0.4 10^3/uL (0.0-0.8); Eosinophils % 6.8 %; Hematocrit 26.5 % (37.0-47.0); Hemoglobin 9.1 g/dL (11.5-15.3); Lymphocytes # 2.1 10^3/uL (0.8-4.8); Lymphocytes % 35.1 %; Mean Corpuscular HGB Conc 34.3 g/dL (30.0-36.0); Mean Corpuscular Hemoglobin 30.4 pg (28.0-34.0); Mean Corpuscular Volume 88.6 fl (81-99); Mean Platelet Volume 9.8 fL (7.4-10.4); Monocytes # 0.5 10^3/uL (0.2-0.9); Monocytes % 9.2 %; Neutrophils # 2.81 10^3/uL (1.8-7.7); Neutrophils % 47.6 %; Nucleated Red Blood Cells % 0 %; Platelet Count 285 10^3/cmm (130-400); Red Blood Count 2.99 10^6/uL (4.1-5.3); Red Cell Distribution Width 14.2 % (12.1-15.1); White Blood Count 5.9 10^3/uL (4.0-10.0)
[2022-06-08] MEDS: heparin 5,000 unit/mL INJ 1 mL 5000 UNIT SUBCUT ×2 (05:17→15:27)
[2022-06-08 05:28] LABS: Estmated Average Glucose 88; Hemoglobin A1C 4.7 % (4.0-6.0)
[2022-06-08 08:00] VITALS: BP 170/82; PULSE 69; RESP 16; TEMP 36.4; O2SAT 97
[2022-06-08] MEDS: pantoprazole DR 40 mg Tablet PO ×2 (08:51→17:20)
[2022-06-08] MEDS: clopidogrel 75 mg Tablet PO (08:51)
[2022-06-08] MEDS: aspirin 325 mg Tablet PO (08:51)
[2022-06-08] MEDS: atorvastatin 40 mg Tablet 80 MG PO (08:51)
[2022-06-08] MEDS: HYDROcodone-acetaminophen 10-325 mg Tablet 1 TAB PO ×2 (12:26→16:30)
--- NOTE | 2022-06-08 13:40 | PM.PN ---
Subjective Subjective: Hospital course, labs appreciated. This morning patient seen with family at bedside. At first patient's family was very disgruntled and frustrated with patient's clinical course, recurrent admission because of worsening expressive aphasia, no continuation of fluids and resumption of diet. Family was explained in detail that patient had received fluids on admission in the ER and expectation is to start diet today after swallow evaluation once the fluid was not continued by the previous physician. We also discussed awaiting swallow evaluation prior to starting diet to make sure patient is not at risk for aspiration given worsening CVA symptoms We also discussed patient is on maximum treatment for stroke with aspirin, Plavix, statin and most importantly will need lifestyle modification going forward. Also discussed we are awaiting the MRI. Vitals/I&O/Wt Last Vital Signs Temp 98.0 F 06/09/22 11:37 Pulse 67 06/09/22 11:37 Resp 16 06/09/22 11:37 BP 157/80 06/09/22 11:37 Pulse Ox 96 06/09/22 11:37 O2 Del Method 06/09/22 11:37 06/08/22 06/09/22 06/09/22 22:59 06:59 14:59 Intake Total 240 / 530 410 / 410 Balance 240 / 530 410 / 410 Physical Exam Narrative: Accompanied by family. Const: COMMON NORMALS: patient oriented x3 and alert GENERAL APPEARANCE: cooperative ORIENTATION/CONSCIOUSNESS: Yes awake OTHER: Tearful. HENMT: COMMON NORMALS: oropharynx normal Neck/C-Spine: COMMON NORMALS: no JVD Resp: COMMON NORMALS: normal respiratory effort and clear to auscultation bilaterally AUSCULTATION: clear to auscultation bilaterally Cardio: COMMON NORMALS: no JVD, regular rhythm, S1 normal heart sound present, S2 normal heart sound present and No murmurs present (Cardio) RHYTHM: regular rhythm HEART SOUNDS: S1 normal heart sound present and S2 normal heart sound present GI: COMMON NORMALS: Normal to inspection, nondistended, normoactive bowel sounds present, Soft to palpation and non-tender PALPATION: Yes Soft to palpation Extremity: COMMON NORMALS: no joint enlargement and no pedal edema Neuro: COMMON NORMALS: patient oriented x3 and moves all extremities SENSORIUM/ORIENTATION: Yes alert COORDINATION/BALANCE: [id number] test normal (Somewhat slow) SPEECH: expressive aphasia (Moderate to severe) SENSORY EXAM: Yes extremities (Symmetrical) and Normal double simultaneous stimulation for sensation MOTOR EXAM: Pronator motor function not present COORDINATION: [id number] test normal (Somewhat slow) OTHER: Awake, alert, responding, following directions, although sometimes needs additional cueing. No facial droop. Tracking horizontally. Visual good appear full to confrontation, although initially with possibly of left upper quadrantanopsia or extinction to double simultaneous stimulation, although could not reproduce this, possibly some difficulty following directions. Skin: COMMON NORMALS: no rashes or lesions noted GENERAL SKIN EXAM: no rashes or lesions noted Data : 06/09/22 04:54 06/07/22 17:27 A&P Assessment and plan (1) Acute CVA (cerebrovascular accident): Await MRI. If patient has new stroke or multiple stroke we will plan for event monitor to rule out arrhythmia. No arrhythmia. Telemetry so far. Continue aspirin, Plavix, statin. Lifestyle modification. CTA head and neck, carotid Doppler, echocardiogram from previous admission last week appreciated. Appreciate PT/OT assessment. Continue with speech therapy. Will need follow-up with neurology (2) UTI (urinary tract infection): With history of UTI in the past On review of culture history on previous admission patient grew E. coli which was resistant in November, on recent admission patient grew pansensitive E. coli and has completed treatment with Keflex on last Wednesday. Urine studies on current admission still has positive leuk esterase, nitrate and 3+ bacteria. Patient is not a reliable historian given expressive aphasia. For now we will continue with IV ceftriaxone. Await final urine cultures to rule out resistant E. coli. (3) Hypertension: Permissible hypertension. Hold off on home dose of carvedilol and amlodipine Plan GIB: Recent GI bleed with melanotic stools, so far melena has resolved, continues on PPI twice daily. Has tolerated Plavix. Currently adding aspirin. Continue PPI twice daily. Ultimately will need assessment with endoscopy. Anemia Full code. Regular diet. 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
[2022-06-08] MEDS: cefTRIAXone 1,000 MG in sodium chloride 0.9% (plus) 50 ML 100 MG IV (13:54)
--- NOTE | 2022-06-08 13:58 | PC.CHAP ---
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 [] Patient/Family/Request visit [] Outpatient visit [] Follow-up visit [] Physician referral [] Code/Alert [x] Routine visit [] Staff referral [] Actively dying [] Patient sleeping [] Family support [] [] Out of room [] Palliative care [] [] Receiving care in room [] Pre-surgical visit [] Trauma [] Long length of stay [] ICU visit [] Other: Relational/Emotional Strength [] Patient feels connected with others/family/visitors/staff [] Distress [] Loneliness/isolation [] Abandonment Spirituality of Patient [] Person of Joy [] Attends Voodoo of their Joy [] Believes in Prayer [] Reads Bible or Moravian materials [] There are Spiritual issues to be addressed Central Supply Assistant Interventions [] Prayer [] Active listening [] Non-anxious presence [] Spiritual/emotional support [] Crisis/trauma care [] Spiritual counseling [] Bereavement support [] Provided bereavement packet [] Provided Bible/devotional materials [] Provided toy/stuffed animal, coloring book to patient or family member [] Provided Communion [] Anointing/[place] [] Salvation [] Completed spiritual assessment [] Other: Impact on Illness or Injury [] Angry [] Fearful [] Anxious [] Often cries [] Exhaustion [] Unable to work [] Unable to attend gnosticist [] Unable to walk/stand [] Unable to read [] Unable to drive [] Unable to eat/drink [] Unable to sleep [] Unable to be with family [] Patient intubated [] Other: Summary Time spent with patient
--- NOTE | 2022-06-08 15:21 | MR_ITS ---
WS: [id number] MRI BRAIN WITHOUT CONTRAST HISTORY: cva COMPARISON: Noncontrast head CT 06/07/2022, prior MRI brain 06/01/2022 TECHNIQUE: Diffusion imaging, multiplanar T1, T2 and FLAIR imaging obtained. New acute diffusion abnormalities in the LEFT cerebrum. Acute infarcts extend along the watershed dis tribution between the vascular territories. Acute infarcts extends along the LEFT lateral ventricle a nd the posterior LEFT frontal parietal cortex. There are small infarcts in the LEFT temporal lobe. No RIGHT cerebral infarcts. Moderate small vessel ischemic disease. Slightly greater in the LEFT cerebellum. More than expected f or the patient's age. No obvious areas of hemorrhage. Ventricles and extra-axial spaces are normal. No inferior displacement of cerebellar tonsils. The sella turcica and pituitary gland are unremarkabl e. Dural venous sinuses and [place] demonstrate no abnormality on this unenhanced studies. Paranasal sinuses: Clear. Mastoid air cells: Normal. Calvarium and scalp: Intact. MR/MR head wo con* [id number] IMPRESSION: 1. New acute LEFT watershed infarcts. Watershed infarct between the border zon es of several different arterial territories. Infarcts extend along the lateral border of the LEFT ventricle and into the posterior frontal parietal cortex an d a few small lacunar infarcts in the LEFT temporal lobe. Nonhemorrhagic. No ac [place] thrombus identified in the visualized carotid artery. 2. Otherwise moderate small vessel ischemic disease, slightly more than expect ed for a patient of this age.
[2022-06-08 16:00] VITALS: BP 152/81; PULSE 67; RESP 16; TEMP 36.8; O2SAT 96
[2022-06-08 20:00] VITALS: BP 148/73; PULSE 72; RESP 17; TEMP 36.8; O2SAT 96
[2022-06-09] VITALS (7 sets, daily range): BP systolic 137–161; BP diastolic 77–83; PULSE 64–71; RESP 16–17; TEMP 36.4–36.8; O2SAT 91–96
[2022-06-09] MEDS: heparin 5,000 unit/mL INJ 1 mL 5000 UNIT SUBCUT ×2 (04:05→17:14)
[2022-06-09 05:26] LABS: Basophils # 0.1 10^3/uL (0.0-0.1); Basophils % 0.9 %; Eosinophils # 0.4 10^3/uL (0.0-0.8); Eosinophils % 7.5 %; Hematocrit 29.3 % (37.0-47.0); Hemoglobin 9.7 g/dL (11.5-15.3); Lymphocytes # 1.3 10^3/uL (0.8-4.8); Lymphocytes % 23.9 %; Mean Corpuscular HGB Conc 33.1 g/dL (30.0-36.0); Mean Corpuscular Hemoglobin 29.8 pg (28.0-34.0); Mean Corpuscular Volume 90.2 fl (81-99); Mean Platelet Volume 10.2 fL (7.4-10.4); Monocytes # 0.5 10^3/uL (0.2-0.9); Monocytes % 8.8 %; Neutrophils # 3.11 10^3/uL (1.8-7.7); Neutrophils % 58.5 %; Nucleated Red Blood Cells % 0 %; Platelet Count 322 10^3/cmm (130-400); Red Blood Count 3.25 10^6/uL (4.1-5.3); Red Cell Distribution Width 14.3 % (12.1-15.1); White Blood Count 5.3 10^3/uL (4.0-10.0)
[2022-06-09] MEDS: atorvastatin 40 mg Tablet 80 MG PO (08:14)
[2022-06-09] MEDS: pantoprazole DR 40 mg Tablet PO ×2 (08:14→17:14)
[2022-06-09] MEDS: clopidogrel 75 mg Tablet PO (08:14)
[2022-06-09] MEDS: aspirin 325 mg Tablet PO (08:14)
[2022-06-09] MEDS: cefTRIAXone 1,000 MG in sodium chloride 0.9% (plus) 50 ML 100 MG IV (13:56)
--- NOTE | 2022-06-09 14:30 | PM.PN ---
Subjective Subjective: No acute events overnight. Seen with family at bedside and working with speech therapy. Seems to be improving. Denies any active new complaints. Vitals/I&O/Wt Last Vital Signs Temp 98.0 F 06/09/22 11:37 Pulse 67 06/09/22 11:37 Resp 16 06/09/22 11:37 BP 157/80 06/09/22 11:37 Pulse Ox 96 06/09/22 11:37 O2 Del Method 06/09/22 11:37 06/08/22 06/09/22 06/09/22 22:59 06:59 14:59 Intake Total 240 / 530 360 / 360 Balance 240 / 530 360 / 360 Physical Exam Narrative: Accompanied by family. Const: COMMON NORMALS: patient oriented x3 and alert GENERAL APPEARANCE: cooperative ORIENTATION/CONSCIOUSNESS: Yes awake OTHER: Tearful. HENMT: COMMON NORMALS: oropharynx normal Neck/C-Spine: COMMON NORMALS: no JVD Resp: COMMON NORMALS: normal respiratory effort and clear to auscultation bilaterally AUSCULTATION: clear to auscultation bilaterally Cardio: COMMON NORMALS: no JVD, regular rhythm, S1 normal heart sound present, S2 normal heart sound present and No murmurs present (Cardio) RHYTHM: regular rhythm HEART SOUNDS: S1 normal heart sound present and S2 normal heart sound present GI: COMMON NORMALS: Normal to inspection, nondistended, normoactive bowel sounds present, Soft to palpation and non-tender PALPATION: Yes Soft to palpation Extremity: COMMON NORMALS: no joint enlargement and no pedal edema Neuro: COMMON NORMALS: patient oriented x3 and moves all extremities SENSORIUM/ORIENTATION: Yes alert COORDINATION/BALANCE: [id number]-[id number] test normal (Somewhat slow) SPEECH: expressive aphasia (Moderate to severe) SENSORY EXAM: Yes extremities (Symmetrical) and Normal double simultaneous stimulation for sensation MOTOR EXAM: Pronator motor function not present COORDINATION: [id number] test normal (Somewhat slow) OTHER: Awake, alert, responding, following directions, although sometimes needs additional cueing. No facial droop. Tracking horizontally. Visual good appear full to confrontation, although initially with possibly of left upper quadrantanopsia or extinction to double simultaneous stimulation, although could not reproduce this, possibly some difficulty following directions. Skin: COMMON NORMALS: no rashes or lesions noted GENERAL SKIN EXAM: no rashes or lesions noted Data : 06/09/22 04:54 06/07/22 17:27 A&P Assessment and plan (1) Acute CVA (cerebrovascular accident): Watershed CVA. Seen on MRI. Continue aspirin, Plavix, statin. Lifestyle modification. CTA head and neck, carotid Doppler, echocardiogram from previous admission last week appreciated. Appreciate PT/OT assessment. Continue with speech therapy. Will need follow-up with neurology (2) UTI (urinary tract infection): With history of UTI in the past On review of culture history on previous admission patient grew E. coli which was resistant in November, on recent admission patient grew pansensitive E. coli and has completed treatment with Keflex on last Wednesday. Urine studies on current admission still has positive leuk esterase, nitrate and 3+ bacteria. Patient is not a reliable historian given expressive aphasia. For now we will continue with IV ceftriaxone. Await final urine cultures to rule out resistant E. coli. (3) Hypertension: Hold blood pressure now less than 140/90 mmHg. Restart home dose of carvedilol. Hold off on amlodipine. Plan GIB: Recent GI bleed with melanotic stools, so far melena has resolved, continues on PPI twice daily. Has tolerated Plavix. Currently adding aspirin. Continue PPI twice daily. Ultimately will need assessment with endoscopy. Anemia Full code. Regular diet. 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
[2022-06-09] MEDS: meropenem 1,000 MG in sodium chloride 0.9% (plus) 50 ML 100 MG IV (17:14)
[2022-06-09] MEDS: carvedilol 12.5 mg Tablet PO (17:14)
[2022-06-10] MEDS: meropenem 1,000 MG in sodium chloride 0.9% (plus) 50 ML 100 MG IV ×2 (00:20→10:01)
[2022-06-10 04:00] VITALS: BP 155/79; PULSE 60; RESP 15; TEMP 36.7; O2SAT 94
[2022-06-10] MEDS: heparin 5,000 unit/mL INJ 1 mL 5000 UNIT SUBCUT (04:14)
[2022-06-10 05:17] LABS: Basophils # 0.1 10^3/uL (0.0-0.1); Basophils % 0.8 %; Eosinophils # 0.3 10^3/uL (0.0-0.8); Eosinophils % 5.8 %; Hematocrit 27.9 % (37.0-47.0); Hemoglobin 9.4 g/dL (11.5-15.3); Lymphocytes # 1.6 10^3/uL (0.8-4.8); Lymphocytes % 27.3 %; Mean Corpuscular HGB Conc 33.7 g/dL (30.0-36.0); Mean Corpuscular Hemoglobin 30.3 pg (28.0-34.0); Mean Platelet Volume 10.3 fL (7.4-10.4); Monocytes # 0.5 10^3/uL (0.2-0.9); Monocytes % 8.8 %; Neutrophils # 3.35 10^3/uL (1.8-7.7); Nucleated Red Blood Cells % 0 %; Platelet Count 324 10^3/cmm (130-400); Red Cell Distribution Width 14.2 % (12.1-15.1); White Blood Count 5.9 10^3/uL (4.0-10.0)
[2022-06-10 08:00] VITALS: BP 165/95; PULSE 71; RESP 15; TEMP 36.6; O2SAT 96
[2022-06-10] MEDS: atorvastatin 40 mg Tablet 80 MG PO (09:30)
[2022-06-10] MEDS: pantoprazole DR 40 mg Tablet PO (09:31)
[2022-06-10] MEDS: carvedilol 12.5 mg Tablet PO (09:31)
[2022-06-10] MEDS: clopidogrel 75 mg Tablet PO (09:31)
[2022-06-10] MEDS: aspirin 325 mg Tablet PO (09:31)
--- NOTE | 2022-06-10 10:51 | P.DS_ITS ---
Discharge Providers Date of Admission: 06/07/22 15:59 Date of Discharge: June 10, 2022 Attending Provider at Admission: John Bob Attending Provider at Discharge: Kvng Mustafa MD Primary Care Provider: Slava Prince MD Diagnoses at Discharge Discharge Diagnosis (1) Acute CVA (cerebrovascular accident): Status: Acute (2) UTI (urinary tract infection): Status: Acute (3) Hypertension: Status: Acute (4) Infection due to ESBL-producing Escherichia coli: Status: Acute (5) Cerebral ischemic stroke due to global hypoperfusion with watershed infarct: Status: Acute Reason for Visit Reason for Visit: Previous mini strokes, speech issues Brief History: History as per HPI: Pleasant 56-year-old lady recently hospitalized with TIA after transient loss of consciousness, right-sided weakness, symptoms preceded by vertigo, melena/UGI bleed, UTI, neurological work-up revealing old lacunar infarcts, including right basal ganglia left centrum semiovale.? CT angiogram head and neck showed moderate stenosis of internal carotid arteries bilaterally, noted question of occlusion of proximal left vertebral artery, moderate stenosis in the intracranial right internal carotid artery, severe stenosis left cavernous internal carotid artery, small distal left vertebral artery. Carotid Doppler shows right ICA 70-99% stenosis, left ICA less than 50% stenosis.? Anterograde flow in vertebral arteries. She was started on Plavix, atorvastatin, asked to discontinue meloxicam, follow- up with neurology, primary provider for continued optimization of risk factors of cardiovascular disease, optimization of blood pressure control.? She was additionally treated with PPI IV twice daily, melanotic stools improving, hemoglobin stabilized and Will ultimately need endoscopic evaluation.? She was also found to have urinary tract infection eventually growing E. coli resistant to quinolones, nitrofurantoin and tetracycline, continued on course of cefdinir. She states she has been taking her medications. Since 06/04 has had more difficulties in communication, progressive word finding difficulty up to moderately-severe aphasia seen currently.? In ER noted hypertensive 180/99, afebrile, without leukocytosis.? Hemoglobin 9.6.? CT head with senescent changes of the brain no evidence for large acute ischemic infarction or acute intracranial injury.? Her case was discussed with telestroke neurology service in ER.? She was not found candidate for acute intervention, with recommendation for aggressive medical management including addition of aspirin, escalation of statin therapy.? Additional assessment by MRI and outpatient neurology follow- up. Urinary findings again suggestive of UTI, 25-40 WBC, 5-10 RBC, positive nitrate, 3+ bacteria for which she received a dose of ceftriaxone. Hospital Course Hospital Course Patient was admitted to hospital further evaluation and management. On admission patient had expressive aphasia which continue to improve with speech therapy. MRI was done which was consistent with watershed strokes. Urine culture was positive for ESBL E. coli. Her hospital stay was otherwise unremarkable. Lifestyle modification were discussed in detail with the patient and patient's family. She has been discharged hemodynamically stable condition with advised to follow-up as an outpatient with speech therapy. She is to follow-up as an outpatient for next [address] [facility] center for ertapenem 1 g daily to finish her course of antibiotics for ESBL E. coli UTI. Physical Exam Narrative: Accompanied by family. Const: COMMON NORMALS: patient oriented x3 and alert GENERAL APPEARANCE: cooperative ORIENTATION/CONSCIOUSNESS: Yes awake OTHER: Tearful. HENMT: COMMON NORMALS: oropharynx normal Neck/C-Spine: COMMON NORMALS: no JVD Resp: COMMON NORMALS: normal respiratory effort and clear to auscultation bilaterally AUSCULTATION: clear to auscultation bilaterally Cardio: COMMON NORMALS: no JVD, regular rhythm, S1 normal heart sound present, S2 normal heart sound present and No murmurs present (Cardio) RHYTHM: regular rhythm HEART SOUNDS: S1 normal heart sound present and S2 normal heart sound present GI: COMMON NORMALS: Normal to inspection, nondistended, normoactive bowel sounds present, Soft to palpation and non-tender PALPATION: Yes Soft to palpation Extremity: COMMON NORMALS: no joint enlargement and no pedal edema Neuro: COMMON NORMALS: patient oriented x3 and moves all extremities SENSORIUM/ORIENTATION: Yes alert COORDINATION/BALANCE: [id number] test normal (Somewhat slow) SPEECH: expressive aphasia (Moderate to severe) SENSORY EXAM: Yes extremities (Symmetrical) and Normal double simultaneous stimulation for sensation MOTOR EXAM: Pronator motor function not present COORDINATION: [id number] test normal (Somewhat slow) OTHER: Awake, alert, responding, following directions, although sometimes needs additional cueing. No facial droop. Tracking horizontally. Visual good appear full to confrontation, although initially with possibly of left upper quadrantanopsia or extinction to double simultaneous stimulation, although could not reproduce this, possibly some difficulty following directions. Skin: COMMON NORMALS: no rashes or lesions noted GENERAL SKIN EXAM: no rashes or lesions noted Discharge Data Studies Completed and Pending Completed Studies During Hospitalization Category Date Time Status CT head wo con* [id number] Stat Cat Scan 06/07/22 11:37 Completed MR head wo con* [id number] Stat MRI 06/08/22 15:21 Completed CV. echo lmt wo/w bubble [id number] Stat Ultrasound 06/07/22 15:21 Completed Radiology Impressions Head CT 06/07/22 11:37 IMPRESSION: There are senescent changes of the brain as described above. No evidence for large acute ischemic infarction or acute intracranial injury.Please note acute ischemia can be occult by head CT. Consider MRI of the brain with diffusion-weighted images if occult ischemia is suspected. ASSESSMENT: ASPECTS ([place] Stroke Program Early CT Score) is 10. Head MRI 06/08/22 15:21 IMPRESSION: 1. New acute LEFT watershed infarcts. Watershed infarct between the border zones of several different arterial territories. Infarcts extend along the lateral border of the LEFT ventricle and into the posterior frontal parietal cortex and a few small lacunar infarcts in the LEFT temporal lobe. Nonhemorrhagic. No acute thrombus identified in the visualized carotid artery. 2. Otherwise moderate small vessel ischemic disease, slightly more than expected for a patient of this age. Laboratory Results WBC 5.9 10^3/uL (4.0-10.0) 06/10/22 04:13 RBC 3.10 10^6/uL (4.1-5.3) L 06/10/22 04:13 Hgb 9.4 g/dL (11.5-15.3) L 06/10/22 04:13 Hct 27.9 % (37.0-47.0) L 06/10/22 04:13 MCV 90.0 fl (81-99) 06/10/22 04:13 MCH 30.3 pg (28.0-34.0) 06/10/22 04:13 MCHC 33.7 g/dL (30.0-36.0) 06/10/22 04:13 RDW 14.2 % (12.1-15.1) 06/10/22 04:13 Plt Count 324 10^3/cmm (130-400) 06/10/22 04:13 MPV 10.3 fL (7.4-10.4) 06/10/22 04:13 Neut % (Auto) 57.0 % 06/10/22 04:13 Lymph % (Auto) 27.3 % 06/10/22 04:13 Lucas % (Auto) 8.8 % 06/10/22 04:13 Eos % (Auto) 5.8 % 06/10/22 04:13 Baso % (Auto) 0.8 % 06/10/22 04:13 Neut # (Auto) 3.35 10^3/uL (1.8-7.7) 06/10/22 04:13 Lymph # (Auto) 1.6 10^3/uL (0.8-4.8) 06/10/22 04:13 Lucas # (Auto) 0.5 10^3/uL (0.2-0.9) 06/10/22 04:13 Eos # (Auto) 0.3 10^3/uL (0.0-0.8) 06/10/22 04:13 Baso # (Auto) 0.1 10^3/uL (0.0-0.1) 06/10/22 04:13 Nucleated RBC % (auto) 0 % 06/10/22 04:13 Nucleated RBCs # 0.0 /100WBC 06/10/22 04:13 Sodium 133 mmol/L (136-145) L 06/07/22 17:27 Potassium 3.5 mmol/L (3.5-5.1) 06/07/22 17:27 Chloride 97 mmol/L (98-107) L 06/07/22 17:27 Carbon Dioxide 27 mmol/L (22-29) 06/07/22 17:27 Anion Gap 12.5 (5-19) 06/07/22 17:27 BUN 16 mg/dL (6-20) 06/07/22 17:27 Creatinine 1.0 mg/dL (0.5-0.9) H 06/07/22 17:27 GFR Calculation 56.9 mL/min (90-130) L 06/07/22 17:27 Glucose 98 mg/dL (65-115) 06/07/22 17:27 POC Glucose 115 mg/dL (70-110) H 06/07/22 12:52 Estimat Average Glucose 88 10/17/22 04:32 Hemoglobin A1c 4.7 % (4.0-6.0) 06/08/22 04:32 Calculated Osmolality 277 mOsm/kg (285-295) L 06/07/22 17:27 Calcium 9.3 mg/dL (8.5-10.5) 06/07/22 17:27 Total Bilirubin 0.4 mg/dL (0.15-1.2) 06/07/22 12:30 AST 19 U/L (0-32) 06/07/22 12:30 ALT 17 U/L (0-33) 06/07/22 12:30 Alkaline Phosphatase 66 U/L (35-105) 06/07/22 12:30 Total Protein 7.1 g/dL (6.6-8.7) 06/07/22 12:30 Albumin 4.5 g/dL (3.5-5.2) 06/07/22 12:30 Globulin 2.6 g/dL (1.3-4.6) 06/07/22 12:30 Urine Color Yellow (Yellow) 06/07/22 12:58 Urine Appearance Clear (CLEAR) 06/07/22 12:58 Urine pH 6 (5-7) 06/07/22 12:58 Ur Specific [place] 1.010 (1.005-1.030) 06/07/22 12:58 Urine Protein Neg (Negative) 06/07/22 12:58 Urine Glucose (UA) Norm (Normal) 06/07/22 12:58 Urine Ketones Negative (Negative) 06/07/22 12:58 Urine Blood 2+ (Negative) H 06/07/22 12:58 Urine Nitrate Positive (Negative) H 06/07/22 12:58 Urine Bilirubin Neg (Negative) 06/07/22 12:58 Urine Urobilinogen Norm mg/dL (Negative) 06/07/22 12:58 Ur Leukocyte Esterase 2+ (Negative) H 06/07/22 12:58 Urine RBC 5-10 /hpf (0-2) H 06/07/22 12:58 Urine WBC 25-40 /hpf (0-5) H 06/07/22 12:58 Ur Squamous Epith Cells Rare /hpf (0-5) 06/07/22 12:58 Amorphous Sediment Not Reportable 06/07/22 12:58 Urine Bacteria 3+ /hpf (NONE) H 06/07/22 12:58 Vitals Last Vital Signs Temp 97.8 F 06/10/22 08:00 Pulse 71 06/10/22 08:00 Resp 15 06/10/22 08:00 BP 165/95 06/10/22 08:00 Pulse Ox 96 06/10/22 08:00 O2 Del Method 06/10/22 08:00 Discharge Plan Discharge Patient Disposition: Home Condition: Stable Prescriptions: New aspirin 325 mg Tablet 325 mg PO DAILY Qty: 30 0RF Continued alprazolam 0.25 mg tablet 0.25 mg PO TID PRN (Reason: anxiety) Qty: 60 1RF hydrocodone-acetaminophen 10-325 mg tablet 1 - 2 tab PO Q4H PRN (Reason: Pain) atorvastatin 40 mg Tablet 40 mg PO DAILY Qty: 90 0RF clopidogrel 75 mg Tablet 75 mg PO DAILY Qty: 90 0RF pantoprazole 40 mg tablet,delayed release (DR/EC) 40 mg PO BID 42 Days Qty: 84 0RF carvedilol 25 mg tablet 12.5 mg PO BID Qty: 1 0RF amlodipine 5 mg tablet 5 mg PO DAILY Qty: 60 12RF Discharge Orders: Discharge Order (Routine); Ordered 06/10/22 Ordered By: Kvng Mustafa Other Ambulatory Orders: Speech Language Pathology Eval and Treat Outpatient (Order) Timeframe: 3 Weeks Facility: [facility] - Location: Speech Therapy [place] Ordered By: Kvng Mustafa Referrals: Slava Prince MD [Primary Care Provider] - 1 week Discharge Diet: Cardiac Discharge Activity: Resume usual activity and Increase activity as tolerated Patient Instructions: Opioid Safety Activity Restrictions/Additional Instructions: Please continue follow-up with speech therapy. Please check your blood pressures daily at home and maintain a blood pressure diary and follow-up with a primary care provider within next 1 week for further adjustment of antihypertensives as needed. Goal blood pressure less than 140/90 mmHg. Please continue follow-up at infusion center for next 3 days to complete the course of antibiotics for E. coli UTI with ertapenem 1 g IV daily. Please make sure you continue to exercise with walking for at least 40 minutes a day for 5 out of 7 days at a speed in which you are able to talk without getting out of breath. Please make sure you consume less than 2 g salt daily. Discharge Attestations Time Spent in Discharge Care*: greater than 30 min Specific Discharge Activities: educating patient, educating and/or supporting family/caregiver, discussing with pcp/other providers, discussing with social work case manager/social workers/dc planners, documenting/other paperwork and evaluating patient/reviewing data Status at Discharge: Cognitive status at discharge: cognitively intact , Behavioral status at discharge: cooperative , Functional status at discharge: independent ambulation , Overall status at discharge: patient is progressing back to baseline Quality Metrics Clinical Quality Measures [ Cerebrovascular Accident { Contraindication to Antithrombotic: None; antithrombotic prescribed; Contraindication to Anticoagulation: None; anticoagulation prescribed; Contraindication to Statin: None; Statin prescribed; Contraindication to tPA: Treatment not indicated; Reason stroke education not provided: Stroke education provided to patient; Rehab services assessed: Physical therapy, Occupational therapy, Speech therapy;}] Coding Level of Care Code Acute Chg FW DC note Diagnoses Acute CVA (cerebrovascular accident) I63.9 UTI (urinary tract infection) N39.0 Hypertension I10 Infection due to ESBL-producing Escherichia coli A49.8; Z16.12 Cerebral ischemic stroke due to global hypoperfusion with watershed infarct I63.9
[2022-06-10] MEDS: amlodipine 5 mg Tablet PO (11:15)
[2022-06-10] MEDS: ertapenem 1,000 MG in sodium chloride 0.9% (plus) 100 ML 200 MG IV (11:33)
[2022-06-10 11:54] VITALS: BP 150/75
[2022-06-10 12:37] VITALS: BP 150/75; PULSE 71; RESP 15; TEMP 36.6; O2SAT 96
== END 2022-06-10 12:42 | disposition home or self-care (01) ==
LOC: ER 15:58 → MEDSURG 16:30
PROVIDERS: Admitting Provider Internal Medicine; Emergency Provider Emergency Medicine; PCP Family Medicine; Visit Provider Student in an Organized Health Care Education/Training Program
DX: I63.9 Cerebral infarction, unspecified (principal); N39.0 Urinary tract infection, site not specified; I10 Essential (primary) hypertension; A49.8 Other bacterial infections of unspecified site; Z16.12 Extended spectrum beta lactamase (ESBL) resistance; I65.23 Occlusion and stenosis of bilateral carotid arteries; Z87.891 Personal history of nicotine dependence
CPT/HCPCS: 36415; 36416; 70450; 70551; 80048; 80053; 81001; 82962; 83036; 85025; 87077; 87086; 87186; 92507; 92523; 92610; 96365; 96367; 96372; 97165; 99285; C8924; G0378; J0696; J1335; J1644; J2185; J7030

== ENCOUNTER 2022-06-13 08:17 | Outpatient (RCR) | payer BC, SELFPAY ==
[2022-06-11] MEDS: ertapenem 1,000 MG in sodium chloride 0.9% (plus) 100 ML 200 MG IV (08:04)
[2022-06-11 08:10] VITALS: BP 163/79; PULSE 68; RESP 18; TEMP 36.2; O2SAT 98
[2022-06-12] MEDS: ertapenem 1,000 MG in sodium chloride 0.9% (plus) 100 ML 200 MG IV (07:45)
[2022-06-12 08:11] VITALS: BP 151/77; PULSE 79; RESP 18; TEMP 36.6; O2SAT 98
[2022-06-13 08:02] VITALS: BP 150/85; PULSE 65; RESP 17; TEMP 36.9; O2SAT 98
[2022-06-13] MEDS: ertapenem 1,000 MG in sodium chloride 0.9% (plus) 100 ML 200 MG IV (08:03)
== END 2022-06-22 23:59 | disposition home or self-care (01) ==
LOC: GILAB 08:17
PROVIDERS: PCP Family Medicine; Visit Provider Student in an Organized Health Care Education/Training Program
DX: A49.8 Other bacterial infections of unspecified site (principal)
CPT/HCPCS: 96365; J1335

== ENCOUNTER 2022-06-16 07:37 | Outpatient (RCR) | payer BC, SELFPAY | END 2022-06-22 23:59 | disposition home or self-care (01) | LOC: SST 07:37 | PROVIDERS: PCP Family Medicine; Visit Provider Family Medicine | DX: R29.90 Unspecified symptoms and signs involving the nervous system (principal); I69.30 Unspecified sequelae of cerebral infarction | CPT/HCPCS: 92507; 96105 ==

== ENCOUNTER 2022-06-23 06:00 | Outpatient (RCR) | payer BC, SELFPAY | END 2022-07-22 23:59 | disposition home or self-care (01) | LOC: SST 06:00 | PROVIDERS: PCP Family Medicine; Visit Provider Family Medicine | DX: I69.30 Unspecified sequelae of cerebral infarction (principal); R29.90 Unspecified symptoms and signs involving the nervous system | CPT/HCPCS: 92507 ==

== ENCOUNTER 2022-07-23 01:00 | Outpatient (RCR) | payer BC, SELFPAY | END 2022-07-23 23:00 | disposition home or self-care (01) | LOC: SST 01:00 | PROVIDERS: PCP Family Medicine; Visit Provider Family Medicine | DX: I63.9 Cerebral infarction, unspecified (principal); I10 Essential (primary) hypertension | CPT/HCPCS: 80048; 85025 ==

== ENCOUNTER → 2023-05-18 08:14 | Outpatient (BNVA) | payer BC, SELFPAY | PROVIDERS: PCP Family Medicine; Visit Provider Family Medicine | DX: I63.9 Cerebral infarction, unspecified (principal); I10 Essential (primary) hypertension; M16.9 Osteoarthritis of hip, unspecified | CPT/HCPCS: 80053; 80061; 85025 ==

== ENCOUNTER 2023-06-14 07:31 | Outpatient (CLI) | payer BC, SELFPAY ==
--- NOTE | 2023-06-14 07:55 | MM_ITS ---
WS: [id number] SCREENING DIGITAL BREAST TOMOSYNTHESIS MAMMOGRAM WITH CAD HISTORY: Z00.00 - Encounter for general adult medical examination ... COMPARISON: None available. Bilateral CC and MLO with tomosynthesis and synthetic mammography submitted. Computer aided detection analyzed. Breast composition: There are scattered areas of fibroglandular density. Lobulated 6 x 5 mm asymmetry in the posterior RIGHT breast seen best on the CC projection. Not definitely seen on the lateral pro jection but may be just above the nipple line. LEFT breast is negative for IMPRESSION: MM/[place] [id number] BI-RADS: 0-Incomplete: Need additional imaging evaluation FOLLOW UP: Need Additional Imaging RIGHT breast: Spot compression views (CC and MLO). True ML. Ultrasound to follo w if abnormality persists.
== END 2023-06-14 07:32 | disposition home or self-care (01) ==
LOC: RAD 07:32
PROVIDERS: PCP Family Medicine; Visit Provider Family Medicine
DX: Z12.31 Encounter for screening mammogram for malignant neoplasm of breast (principal)
CPT/HCPCS: 77063; 77067

== ENCOUNTER 2023-08-03 08:37 | Outpatient (CLI) | payer BC, SELFPAY ==
--- NOTE | 2023-08-03 08:41 | US_ITS ---
WS: [id number] ADDITIONAL VIEWS RIGHT MAMMOGRAM WITH DIGITAL BREAST TOMOSYNTHESIS. RIGHT BREAST ULTRASOUND HISTORY: abnormal mammagram COMPARISON: 06/14/2023 RIGHT MAMMOGRAM: Spot compression views and true ML with digital breast tomosynthesis and SM. Nodule measuring 6 mm persists in the posterior RIGHT breast near 12:00. No calcifications. This may be a small lymph node. RIGHT BREAST ULTRASOUND 2-D and color Doppler imaging submitted. There is a hypoechoic nodule 12:00, 2 cm from the nipple measuring 6 x 5 x 2 mm. This does correspond in size and location to the mammographic abnormality. This appears benign. There is no shadowing. IMPRESSION: US/US breast RT limited* [id number] BI-RADS: 3-Probably Benign FOLLOW UP: 6 Month Follow-up 1. Recommend diagnostic RIGHT mammogram follow-up and ultrasound in 6 months. T his nodule appears very benign by ultrasound. There are no prior mammograms elida ilable for comparison.
--- NOTE | 2023-08-03 09:00 | MM_ITS ---
WS: [id number] ADDITIONAL VIEWS RIGHT MAMMOGRAM WITH DIGITAL BREAST TOMOSYNTHESIS. RIGHT BREAST ULTRASOUND HISTORY: abnormal mammagram COMPARISON: 06/14/2023 RIGHT MAMMOGRAM: Spot compression views and true ML with digital breast tomosynthesis and SM. Nodule measuring 6 mm persists in the posterior RIGHT breast near 12:00. No calcifications. This may be a small lymph node. RIGHT BREAST ULTRASOUND 2-D and color Doppler imaging submitted. There is a hypoechoic nodule 12:00, 2 cm from the nipple measuring 6 x 5 x 2 mm. This does correspond in size and location to the mammographic abnormality. This appears benign. There is no shadowing. IMPRESSION: MM/[place] [id number] BI-RADS: 3-Probably Benign FOLLOW UP: 6 Month Follow-up 1. Recommend diagnostic RIGHT mammogram follow-up and ultrasound in 6 months. T his nodule appears very benign by ultrasound. There are no prior mammograms elida ilable for comparison.
== END 2023-08-03 08:38 | disposition home or self-care (01) ==
LOC: RAD 08:37
PROVIDERS: PCP Family Medicine; Visit Provider Family Medicine
DX: R92.8 Other abnormal and inconclusive findings on diagnostic imaging of breast (principal)
CPT/HCPCS: 76642; 77061; G0279

== ENCOUNTER → 2023-11-12 12:56 | Outpatient (BNVA) | payer BC, SELFPAY | PROVIDERS: PCP Family Medicine; Visit Provider Nurse Practitioner | DX: M79.671 Pain in right foot (principal); M19.071 Primary osteoarthritis, right ankle and foot | CPT/HCPCS: 73630 ==

== ENCOUNTER → 2023-11-23 08:23 | Outpatient (BNVA) | payer BC, SELFPAY | PROVIDERS: PCP Family Medicine; Visit Provider Family Medicine | DX: I10 Essential (primary) hypertension (principal); M79.673 Pain in unspecified foot; M77.50 Other enthesopathy of unspecified foot and ankle | CPT/HCPCS: 80053; 80061; 85025 ==

== ENCOUNTER → 2023-12-31 08:14 | Outpatient (BNVA) | payer BC, SELFPAY | PROVIDERS: PCP Family Medicine; Visit Provider Podiatrist Foot & Ankle Surgery | DX: M77.41 Metatarsalgia, right foot | CPT/HCPCS: 73630 ==

== ENCOUNTER → 2024-05-24 08:41 | Outpatient (BNVA) | payer BC, SELFPAY | PROVIDERS: PCP Family Medicine; Visit Provider Family Medicine | DX: I10 Essential (primary) hypertension (principal); I63.9 Cerebral infarction, unspecified | CPT/HCPCS: 80053; 80061; 85025 ==

== ENCOUNTER 2024-08-28 06:28 | Emergency (ER) | payer BC, SELFPAY ==
[2024-08-28] VITALS (7 sets, daily range): BP systolic 140–215; BP diastolic 73–96; PULSE 65–78; RESP 15–19; TEMP 36.4; O2SAT 89–95
--- NOTE | 2024-08-28 06:42 | XRR_ITS ---
PROCEDURE INFORMATION: Exam: XR Chest Exam date and time: 08/28/2024 7:00 AM Age: 59 years old Clinical indication: Dyspnea; Additional info: Dyspnea/cough TECHNIQUE: Imaging protocol: Radiologic exam of the chest. Views: 1 view. COMPARISON: CR XR chest 1V portable [id number] 06/01/2022 6:44 PM FINDINGS: Lungs: Unremarkable. No consolidation. Pleural spaces: Unremarkable. No pleural effusion. No pneumothorax. Heart/Mediastinum: Unremarkable. No cardiomegaly. Bones/joints: Unremarkable. XR/XR chest 1V portable [id number] IMPRESSION: No acute findings.
--- NOTE | 2024-08-28 06:55 | ED_ITS ---
HPI - Ear Problem 2 General: Chief complaint: Ear Stated complaint: fever, ear clogged, sob Time Seen by Provider: 08/28/24 06:37 History of Present Illness: 59-year-old female presents emergency ro om complaining of clogged in her ear fever shortness of breath. She had symptoms for the last 2 days. She denies any cough however. No chest pain. No vomiting or diarrhea. No drainage from the ears Associated symptoms: Denies fever(s) or neck pain Related Data Home Medications Medication Instructions Recorded Confirmed hydrocodone 10 mg-acetaminophen 1 - 2 tab PO Q4H PRN Pain 05/21/20 08/28/24 325 mg tablet amlodipine 5 mg tablet 5 mg PO BID 08/28/24 08/28/24 aspirin 81 mg tablet,delayed 81 mg PO DAILY 08/28/24 08/28/24 release atorvastatin 40 mg tablet 40 mg PO DAILY 08/28/24 08/28/24 carvedilol 25 mg tablet 25 mg PO BID 08/28/24 08/28/24 clopidogrel 75 mg tablet 75 mg PO DAILY 08/28/24 08/28/24 hydrochlorothiazide 25 mg tablet 25 mg PO DAILY 08/28/24 08/28/24 pantoprazole 40 mg tablet,delayed 40 mg PO BID 08/28/24 08/28/24 release Previous Rx's Medication Instructions Recorded Cam Boot #1 ea 11/12/23 albuterol sulfate 90 mcg/actuation 2 inh inhalation Q4H PRN shortness 08/28/24 aerosol inhaler of breath or wheezing #18 grams methylprednisolone 4 mg tablets in See Rx Instructions PO .COMPLEX 08/28/24 a dose pack (Medrol (Enrique)) #21 ea Allergies Allergy/AdvReac Type Severity Reaction Status Date / Time NSAIDS (Non-Steroidal Allergy Unknown Unknown Verified 12/31/23 08:13 Anti-Inflamma Sulfa (Sulfonamide Allergy Unknown Verified 12/31/23 08:13 Antibiotics) meloxicam AdvReac Unknown Unknown Verified 12/31/23 08:13 Review of Systems 2 Const: Denies: fever(s) or chills ENMT: Reports: change in hearing Card: Denies: chest pain Resp: Reports: dyspnea; Denies: productive cough, non-productive cough or chest congestion GI: Denies: abdominal pain : Denies: dysuria, urinary frequency or urinary urgency Musc: Denies: neck pain or back pain Skin/Breast: Denies: rash PFSH ED 2 PFSH: Medical History Carotid artery stenosis with cerebral infarction within last 8 weeks Cerebral ischemic stroke due to global hypoperfusion with watershed infarct Infection due to ESBL-producing Escherichia coli LVH (left ventricular hypertrophy) Melena Acute anemia Anemia GI bleed Hypertension COVID-19 Surgical History History of carotid endarterectomy done on left, 08/2022 History of carpal tunnel surgery History of back surgery Hx of tonsillectomy History of H/O tubal ligation Hx of appendectomy Family History Other Hypertension Parkinson disease Social History Smoking and tobacco/nicotine status: never used tobacco/nicotine Alcohol intake: current Alcohol intake frequency: holidays/special occasions only Substance/Drug Use: never 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 Fluid does not appear to be purulent. There is no erythema or no loss of landmarks. Resp: COMMON NORMALS: normal respiratory effort, No retractions, No use of accessory muscles and clear to auscultation bilaterally AUSCULTATION: clear to auscultation bilaterally Cardio: COMMON NORMALS: regular rate, regular rhythm and No murmurs present (Cardio) RATE: regular rate RHYTHM: regular rhythm GI: COMMON NORMALS: Soft to palpation and No hepatosplenomegaly present A USCULTATION: Yes normoactive bowel sounds PALPATION: Yes Soft to palpation, No Tenderness to palpation present (GI), No Guarding due to palpation present (GI) and Yes No hepatosplenomegaly present Extremity: COMMON NORMALS: normal to inspection, capillary refill normal, no clubbing, cyanosis or edema, no calf tenderness and no pedal edema Neuro: SENSORIUM/ORIENTATION: Yes oriented to person, Yes oriented to place and Yes oriented to time Skin: COMMON NORMALS: no rashes or lesions noted GENERAL SKIN EXAM: no rashes or lesions noted Course 2 Vital Signs: Vital signs: Vital Signs Temperature 97.6 F 08/28/24 06:56 Pulse Rate 77 08/28/24 10:08 Respiratory Rate 17 08/28/24 10:08 Blood Pressure 140/76 08/28/24 10:08 Pulse Oximetry 92 08/28/24 10:08 Oxygen Delivery Me thod Room Air 08/28/24 09:30 MDM - Ear Medical Decision Making Will discharge patient home. She does not have an acute ear infection on exam. She did have improvement with breathing treatment in the emergency room. Will discharge home on a steroid taper and albuterol to use as needed. Did note that while she was here her oxygen sat did drop when she slapped and rebounded to normal when she is awake suspect she does have some sleep apnea may need to be evaluated for this Medical Records I reviewed the patient's medical records. Lab Data I reviewed the patient's lab results. 08/28/24 07:37 08/28/24 07:37 Radiology Impressions Chest X-Ray 08/28/24 06:42 IMPRESSION: No acute findings. Laboratory Results WBC 6.24 10^3/uL (3.29-11.43) 08/28/24 07:37 RBC 4.54 10^6/uL (3.85-5.65) 08/28/24 07:37 Hgb 12.40 g/dL (11.27-16.99) 08/28/24 07:37 Hct 38.3 % (36-47) 08/28/24 07:37 MCV 84.4 fl (85-98) L 08/28/24 07:37 MCH 27.3 pg (27-33) 08/28/24 07:37 MCHC 32.4 g/dL (30-55) 08/28/24 07:37 RDW 14.1 % (12.1-15.1) 08/28/24 07:37 Plt Count 221 10^3/cmm (157-399) 08/28/24 07:37 MPV 10.0 fL (7.4-10.4) 08/28/24 07:37 Neut % (Auto) 68.7 % 08/28/24 07:37 Lymph % (Auto) 16.7 % 08/28/24 07:37 [place] % (Auto) 10.9 % 08/28/24 07:37 Eos % (Auto) 2.9 % 08/28/24 07:37 Baso % (Auto) 0.6 % 08/28/24 07:37 Neut # (Auto) 4.29 10^3/uL (1.8-7.7) 08/28/24 07:37 Lymph # (Auto) 1.0 10^3/uL (0.8-4.8) 08/28/24 07:37 [place] # (Auto) 0.7 10^3/uL (0.2-0.9) 08/28/24 07:37 Eos # (Auto) 0.2 10^3/uL (0.0-0.8) 08/28/24 07:37 Baso # (Auto) 0.0 10^3/uL (0.0-0.1) 08/28/24 07:37 Nucleated RBC % (auto) 0 % 08/28/24 07:37 Nucleated RBCs # 0.0 /100WBC 08/28/24 07:37 Sodium 138 mmol/L (136-145) 08/28/24 07:37 Potassium 3.5 mmol/L (3.5-5.1) 08/28/24 07:37 Chloride 99 mmol/L (98-107) 08/28/24 07:37 Carbon Dioxide 24 mmol/L (22-29) 08/28/24 07:37 Anion Gap 18.5 (5-19) 08/28/24 07:37 BUN 15 mg/dL (8-23) 08/28/24 07:37 Creatinine 1.2 mg/dL (0.5-0.9) H 08/28/24 07:37 GFR Calculation 45.7 mL/min (90-130) L 08/28/24 07:37 Glucose 114 mg/dL (65-115) 08/28/24 07:37 Calculated Osmolality 288 mOsm/kg (285-295) 08/28/24 07:37 Calcium 9.2 mg/dL (8.5-10.5) 08/28/24 07:37 Total Bilirubin 0.2 mg/dL (0.15-1.2) 08/28/24 07:37 AST 22 U/L (0-32) 08/28/24 07:37 ALT 19 U/L (0-33) 08/28/24 07:37 Alkaline Phosphatase 102 U/L (35-105) 08/28/24 07:37 Total Protein 7.1 g/dL (6.6-8.7) 08/28/24 07:37 Albumin 4.1 g/dL (3.5-5.2) 08/28/24 07:37 Globulin 3.0 g/dL (1.3-4.6) 08/28/24 07:37 All radiology interpretation(s) finalized by discharge Discharge Plan Discharge Patient Disposition: Home Clinical Impression: Viral upper respiratory tract infection Condition: Stable Prescriptions: New methylprednisolone [Medrol (Enrique)] 4 mg tablets,dose pack See Rx Instructions .ROUTE .COMPLEX Qty: 21 0RF Rx Instructions: orally per package directions albuterol sulfate 90 mcg/actuation HFA aerosol inhaler 2 inh INHALATION Q4H PRN (Reason: shortness of breath or wheezing) Qty: 18 0RF No Action (DME) Cam Boot See Rx Instructions .Route .MEDSUPPLY Qty: 1 0RF Rx Instructions: As directed hydrocodone-acetaminophen 10-325 mg tablet 1 - 2 tab PO Q4H PRN (Reason: Pain) atorvastatin 40 mg tablet 40 mg PO DAILY carvedilol 25 mg tablet 25 mg PO BID clopidogrel 75 mg tablet 75 mg PO DAILY amlodipine 5 mg tablet 5 mg PO BID aspirin 81 mg tablet,delayed release (DR/EC) 81 mg PO DAILY pantoprazole 40 mg tablet,delayed release (DR/EC) 40 mg PO BID hydrochlorothiazide 25 mg tablet 25 mg PO DAILY Rx Instructions: TAKE ONE TABLET BY MOUTH DAILY Discharge Orders: Discharge ED (Routine); Ordered 08/28/24 Ordered By: Corby Mullen Referrals: Slava Prince MD [Primary Care Provider] - Discharge Diet: Usual diet Discharge Activity: Increase activity as tolerated Patient Instructions: Opioid Safety, Pain Management Activity Restrictions/Additional Instructions: Thank you for choosing [facility] for your healthcare needs today. It is very important that you follow up as instructed or that you return to the Emergency Department should you have concerns or if your condition changes or worsens in any way. You were seen in the emergency room for shortness of breath upper respiratory symptoms. Chest x-ray did not show any acute findings. Your exam showed some fluid but no infection. We did note that when you were sleeping your oxygen sats dropped a little bit if you have not previously been checked for sleep apnea you should be. Will discharge home with a steroid taper albuterol to use as needed follow-up with your primary care doctor Coding Level of Care Code ED [employer] for Eyad Smith
[2024-08-28 07:49] LABS: Basophils % 0.6 %; Eosinophils # 0.2 10^3/uL (0.0-0.8); Eosinophils % 2.9 %; Hematocrit 38.3 % (36-47); Lymphocytes % 16.7 %; Mean Corpuscular HGB Conc 32.4 g/dL (30-55); Mean Corpuscular Hemoglobin 27.3 pg (27-33); Mean Corpuscular Volume 84.4 fl (85-98); Monocytes # 0.7 10^3/uL (0.2-0.9); Monocytes % 10.9 %; Neutrophils # 4.29 10^3/uL (1.8-7.7); Neutrophils % 68.7 %; Nucleated Red Blood Cells % 0 %; Platelet Count 221 10^3/cmm (157-399); Red Blood Count 4.54 10^6/uL (3.85-5.65); Red Cell Distribution Width 14.1 % (12.1-15.1); White Blood Count 6.24 10^3/uL (3.29-11.43)
[2024-08-28 08:10] LABS: Alanine Aminotransferase 19 U/L (0-33); Albumin Level 4.1 g/dL (3.5-5.2); Alkaline Phosphatase 102 U/L (35-105); Anion Gap 18.5 (5-19); Aspartate Amino Transferase 22 U/L (0-32); Blood Urea Nitrogen 15 mg/dL (8-23); Calcium 9.2 mg/dL (8.5-10.5); Carbon Dioxide 24 mmol/L (22-29); Chloride 99 mmol/L (98-107); Creatinine Clr Calc Pharmacy 50.1551; Glomerular Filtration Rate 45.7 mL/min (90-130); Glucose 114 mg/dL (65-115); Osmolality Calculated 288 mOsm/kg (285-295); Potassium 3.5 mmol/L (3.5-5.1); Sodium 138 mmol/L (136-145); Total Bilirubin 0.2 mg/dL (0.15-1.2); Total Protein 7.1 g/dL (6.6-8.7)
--- NOTE | 2024-08-28 08:43 | ECG_ITS ---
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 Measurements Intervals [place] Rate: 71 P: 29 DC: 192 QRS: 44 QRSD: 80 T: 51 QT: 387 QTc: 421 Interpretive Statements SINUS RHYTHM Compared to ECG 06/02/2022 02:58:56 T-wave abnormality no longer present Electronically Signed On 08-28-2024 17:04:36 [employer] by Solomon Roberts M.D. [email or web address]
[2024-08-28] MEDS: ipratropium-albuterol 3 mL Neb INHALATION (09:02)
== END 2024-08-28 10:09 | disposition home or self-care (01) ==
PROVIDERS: Emergency Provider Family Medicine; PCP Family Medicine
DX: J06.9 Acute upper respiratory infection, unspecified (principal)
CPT/HCPCS: 71045; 80053; 85025; 93005; 94640; 99285

== ENCOUNTER → 2025-08-02 11:10 | Outpatient (BNVA) | payer OTHER, SELFPAY | PROVIDERS: PCP Family Medicine; Visit Provider Family Medicine | DX: I10 Essential (primary) hypertension (principal); M48.02 Spinal stenosis, cervical region; I63.9 Cerebral infarction, unspecified | CPT/HCPCS: 80053; 80061; 85025 ==